=== PATIENT | female | born 1965 | race Caucasian/White ===

== ENCOUNTER 2017-12-10 21:52 | Emergency (ER) | payer SELFPAY ==
[2017-12-10] MEDS ORDERED: LOPRESSOR PO ONE (22:04)
[2017-12-10] MEDS ORDERED: NACL 0.9% 1000 ML 1,000 ML IV ONE (22:04)
--- NOTE | 2017-12-10 22:22 | Emergency Department Report ---
ED Palpitations HPI - General Chief Complaint: Arrhythmia/Palpitations Stated Complaint: PALPITATIONS Time Seen by Provider: 12/10/17 22:03 Source: patient, EMS Mode of arrival: Ambulatory Limitations: No Limitations - History of Present Illness Initial Comments: Michele 2-year-old female who presents via EMS with a chief complaint of tachycardia. She has a history of SVT. While in route I did speak with EMS and we did give 6 mg of Adenocard. Her heart rate was still over 180 after the Adenocard, heart rate came down to about 115. She denies any kind of chest pain or shortness of breath at this time. She is hemodynamically stable at this time. MD Complaint: rapid heart beat -: Sudden Context: occured during rest Arrythmia History: SVT Associated Symptoms: denies other symptoms Treatments Prior to Arrival: adenosine (6 mg) - Related Data Allergies Allergy/AdvReac Type Severity Reaction Status Date / Time tramadol AdvReac Unknown Verified 12/10/17 22:05 ED Review of Systems ROS: Stated complaint: PALPITATIONS Other details as noted in HPI Comment: All other systems reviewed and negative Constitutional: no symptoms reported Eyes: as per HPI ENT: as per HPI Respiratory: no symptoms reported Cardiovascular: as per HPI Endocrine: no symptoms reported, see HPI Gastrointestinal: as per HPI Genitourinary: as per HPI Musculoskeletal: as per HPI Skin: as per HPI Neurological: as per HPI Psychiatric: as per HPI Hematological/Lymphatic: as per HPI ED Physical Exam - General Limitations: No Limitations General appearance: alert, in no apparent distress - Head Head exam: Present: atraumatic, normocephalic - Eye Eye exam: Present: normal appearance, PERRL, EOMI - ENT ENT exam: Present: normal exam, normal orophraynx - Neck Neck exam: Present: normal inspection - Respiratory Respiratory exam: Present: normal lung sounds bilaterally, respiratory distress - Cardiovascular Cardiovascular Exam: Present: regular rate, normal rhythm - GI/Abdominal GI/Abdominal exam: Present: soft, normal bowel sounds - Extremities Exam Extremities exam: Present: normal inspection, full ROM - Back Exam Back exam: Present: normal inspection, full ROM - Neurological Exam Neurological exam: Present: alert, oriented X3 - Psychiatric Psychiatric exam: Present: normal affect - Skin Skin exam: Present: warm, dry ED Course Vital Signs 12/10/17 23:07 Pulse Rate 117 H Blood Pressure 125/90 - Reevaluation(s) Reevaluation #1: 12/10/17 22:25 The patient is alert and oriented 3 without any distress. Her heart rate is 115 on the monitor. There are no ST changes on the EKG. I decided to go ahead and give her metoprolol 25 mg by mouth here in the ER. We will go ahead and get a CBC CMP cardiac enzymes and TSH urine drug screen and a UA. All this is negative my intention is to discharge the patient. She is to follow-up with her primary care doctor as well if she gets discharge. Labs are pending. 12/10/17 23:37 I reviewed the results with the patient. She did take her metoprolol 25 mg by mouth here in the ER. She wanted to sign out AMA. I advised her that was not really a great idea. She still needs to get some fluids and her blood pressure is around 90s over 60s. However she still wants to leave. I advised her to drink plenty of fluids and if she has any problems to return immediately. She expresses understanding. At this time I'll go ahead and discharge the patient accordingly. ED Medical Decision Making - Lab Data Result diagrams: 12/10/17 22:47 12/10/17 22:47 Critical care attestation.: If time is entered above; I have spent that time in minutes in the direct care of this critically ill patient, excluding procedure time. ED Disposition Clinical Impression: SVT (supraventricular tachycardia) Disposition: DC-01 TO HOME OR SELFCARE Is pt being admited?: No Does the pt Need Aspirin: No Condition: Stable Instructions: Supraventricular Tachycardia (ED) Additional Instructions: Rest, fluids, follow-up with her primary care doctor, call 911 or return to the ER if you feel like your having worsening symptoms or new symptoms. Referrals: ALFRED AMARAL MD [Primary Care Provider] - 3-5 Days Forms: AMA Form
--- NOTE | 2017-12-10 22:45 | XRay Report ---
FINAL REPORT EXAM: XR CHEST 1V AP HISTORY: Dysrhythmia TECHNIQUE: upright single view chest PRIORS: None. FINDINGS: Cardiac and mediastinal contours are unremarkable. No focal pulmonary infiltrate is identified. No pleural fluid collection seen. Pulmonary vasculature is unremarkable. IMPRESSION: Negative single-view chest
[2017-12-10 23:06] LABS: Basophils % (Auto) 0.3 % (0.0-1.8); Eosinophils # (Auto) 0.3 K/mm3 (0.0-0.4); Eosinophils % (Auto) 4.3 % (0.0-4.3); Hematocrit 40.3 % (30.3-42.9); Hemoglobin 13.8 gm/dl (10.1-14.3); Lymphocytes # (Auto) 2.7 K/mm3 (1.2-5.4); Lymphocytes % (Auto) 35.8 % (13.4-35.0); Mean Corpuscular HGB Conc 34 % (30-34); Mean Corpuscular Hemoglobin 31 pg (28-32); Mean Corpuscular Volume 90 fl (79-97); Monocytes # (Auto) 0.6 K/mm3 (0.0-0.8); Monocytes % (Auto) 7.7 % (0.0-7.3); Platelet Count 217 K/mm3 (140-440); Red Blood Count 4.46 M/mm3 (3.65-5.03); Red Cell Distribution Width 14.1 % (13.2-15.2)
[2017-12-10 23:20] LABS: Creatine Kinase MB 1.2 ng/mL (0.0-4.0)
[2017-12-10 23:21] LABS: Alanine Aminotransferase 13 units/L (7-56); BUN/Creatinine Ratio 20; Blood Urea Nitrogen 14 mg/dL (7-17); Calcium 8.4 mg/dL (8.4-10.2); Hemolysis Index 5; INR 0.9 (0.87-1.13)
[2017-12-10 23:22] LABS: Partial Thromboplastin Time 28.6 Sec. (24.2-36.6)
[2017-12-10 23:47] VITALS: BP 90/60
== END 2017-12-11 01:32 | disposition home or self-care (01) ==
LOC: ED 21:52
DX: I47.1 Supraventricular tachycardia (principal); Z88.6 Allergy status to analgesic agent
CPT/HCPCS: 36415; 71045; 80053; 82550; 82553; 83735; 84443; 84484; 85025; 85610; 85730; 93005; 93010; 99284; J7030

== ENCOUNTER 2018-04-22 19:36 | Inpatient (IN) | payer SELFPAY ==
[2018-04-22] MEDS ORDERED: ASPIRIN PO ONE (20:14)
[2018-04-22 20:48] LABS: Basophils % (Auto) 0.5 % (0.0-1.8); Eosinophils # (Auto) 0.4 K/mm3 (0.0-0.4); Eosinophils % (Auto) 4.9 % (0.0-4.3); Hematocrit 42.9 % (30.3-42.9); Hemoglobin 14.1 gm/dl (10.1-14.3); Lymphocytes % (Auto) 41.4 % (13.4-35.0); Mean Corpuscular HGB Conc 33 % (30-34); Mean Corpuscular Hemoglobin 30 pg (28-32); Mean Corpuscular Volume 90 fl (79-97); Monocytes # (Auto) 0.5 K/mm3 (0.0-0.8); Monocytes % (Auto) 6.7 % (0.0-7.3); Platelet Count 232 K/mm3 (140-440); Red Blood Count 4.75 M/mm3 (3.65-5.03); Red Cell Distribution Width 14.5 % (13.2-15.2)
[2018-04-22 20:58] LABS: INR 0.94 (0.87-1.13)
[2018-04-22 20:59] LABS: Partial Thromboplastin Time 29.1 Sec. (24.2-36.6)
[2018-04-22 21:01] LABS: BUN/Creatinine Ratio 21; Blood Urea Nitrogen 15 mg/dL (7-17); Calcium 9.3 mg/dL (8.4-10.2); Hemolysis Index 12
[2018-04-22 21:15] LABS: Bacteria,Urine 1+ /HPF (Negative); Bilirubin,Urine NEG (Negative); Blood,Urine LG (Negative); Color,Urine Yellow (Yellow); Mucus,Urine FEW /HPF; Protein,Urine <15 mg/dL mg/dL (Negative); Urobilinogen,Urine < 2.0 mg/dL (<2.0)
[2018-04-22] MEDS ORDERED: NITRO-BID 2% TP ONE (22:49)
[2018-04-22] MEDS ORDERED: NORCO 5/325 PO ONE (22:49)
[2018-04-22] MEDS ORDERED: ZOFRAN IV ONE (22:49)
--- NOTE | 2018-04-22 23:04 | Emergency Department Report ---
HPI - General Chief Complaint: Chest Pain Time Seen by Provider: 04/22/18 22:38 - HPI HPI: Room 4 The patient is a 52-year-old female presented with a chief complaint chest pain. The patient states for the past 3 days she's had a constant sharp and pressure-like pain left chest radiating to the left neck and left upper extremity. The patient states has been shortness of breath with her chest pain as well as diaphoresis and nausea. Patient denies vomiting. The patient gives her pain score of 5/10. The patient states she's never had a stress test or cardiac catheterization Location: Left chest Duration: 3 days Quality: Sharp, pressure Severity: 5/10 Modifying factors: [see above] Context: [see above] Mode of transportation: [not driving] ED Past Medical Hx - Past Medical History Previous Medical History?: Yes Hx Hypertension: Yes Additional medical history: SVT, "frozen" left shoulder, degenerative disk disease, hypothyroid - Surgical History Additional Surgical History: 4 - Family History Family history: no significant - Social History Smoking Status: Former Smoker (none 2 years) Substance Use Type: None (denies illicit drug use) ED Review of Systems ROS: Stated complaint: CHEST PAIN Other details as noted in HPI Constitutional: diaphoresis Respiratory: shortness of breath Cardiovascular: chest pain Gastrointestinal: nausea. denies: vomiting Physical Exam - Physical Exam Vital Signs: Vital Signs 04/22/18 20:11 Temperature 98.1 F Pulse Rate 77 Respiratory 20 Rate Blood Pressure 121/82 O2 Sat by Pulse 97 Oximetry Physical Exam: GENERAL: The patient is well-developed well-nourished female lying on stretcher not appearing to be in acute distress. [] HEENT: Normocephalic. Atraumatic. Extraocular motions are intact. Patient has moist mucous membranes. NECK: Supple. Trachea midline CHEST/LUNGS: Clear to auscultation. There is no respiratory distress noted. HEART/CARDIOVASCULAR: Regular. There is no tachycardia. There is no gallop rub or murmur. ABDOMEN: Abdomen is soft, nontender. Patient has normal bowel sounds. There is no abdominal distention. SKIN: There is no rash. There is no edema. There is no diaphoresis. NEURO: The patient is awake, alert, and oriented. The patient is cooperative. The patient has normal speech MUSCULOSKELETAL: There is no evidence of acute injury. ED Course Vital Signs 04/22/18 20:11 Temperature 98.1 F Pulse Rate 77 Respiratory 20 Rate Blood Pressure 121/82 O2 Sat by Pulse 97 Oximetry ED Medical Decision Making - Lab Data Result diagrams: 04/22/18 20:36 04/22/18 20:36 Laboratory Tests 04/22/18 04/22/18 04/22/18 20:36 20:36 20:36 WBC 7.1 RBC 4.75 Hgb 14.1 Hct 42.9 MCV 90 MCH 30 MCHC 33 RDW 14.5 Plt Count 232 Lymph % (Auto) 41.4 H [place] % (Auto) 6.7 Eos % (Auto) 4.9 H Baso % (Auto) 0.5 Lymph # 3.0 [place] # 0.5 Eos # 0.4 Baso # 0.0 Seg Neutrophils % 46.5 Seg Neutrophils # 3.3 PT 13.0 INR 0.94 APTT 29.1 Sodium 137 Potassium 4.1 Chloride 99.6 Carbon Dioxide 23 Anion Gap 19 BUN 15 Creatinine 0.7 Estimated GFR > 60 BUN/Creatinine Ratio 21 Glucose 87 Calcium 9.3 Troponin T < 0.010 Urine Color Urine Turbidity Urine pH Ur Specific [place] Urine Protein Urine Glucose (UA) Urine Ketones Urine Blood Urine Nitrite Urine Bilirubin Urine Urobilinogen Ur Leukocyte Esterase Urine WBC (Auto) Urine RBC (Auto) U Epithel Cells (Auto) Urine Bacteria (Auto) Urine Mucus 04/22/18 21:01 WBC RBC Hgb Hct MCV MCH MCHC RDW Plt Count Lymph % (Auto) [place] % (Auto) Eos % (Auto) Baso % (Auto) Lymph # [place] # Eos # Baso # Seg Neutrophils % Seg Neutrophils # PT INR APTT Sodium Potassium Chloride Carbon Dioxide Anion Gap BUN Creatinine Estimated GFR BUN/Creatinine Ratio Glucose Calcium Troponin T Urine Color Yellow Urine Turbidity Clear Urine pH 5.0 Ur Specific [place] 1.021 Urine Protein <15 mg/dl Urine Glucose (UA) Neg Urine Ketones Neg Urine Blood Lg Urine Nitrite Neg Urine Bilirubin Neg Urine Urobilinogen < 2.0 Ur Leukocyte Esterase Tr Urine WBC (Auto) 10.0 H Urine RBC (Auto) 14.0 U Epithel Cells (Auto) 2.0 Urine Bacteria (Auto) 1+ Urine Mucus Few - EKG Data -: EKG Interpreted by Ca EKG shows normal: sinus rhythm Rate: normal - EKG Data When compared to previous EKG there are: changes noted Interpretation: nonspecific ST-T wave jose (T-wave inversion in lead 3) - Radiology Data Radiology results: image reviewed (chest x-ray) interpreted by me: Chest x-ray-no focal infiltrates, no pneumothorax - Differential Diagnosis ACS, pericarditis, pneumonia, bronchitis, GERD Critical care attestation.: If time is entered above; I have spent that time in minutes in the direct care of this critically ill patient, excluding procedure time. ED Disposition Clinical Impression: Chest pain Disposition: OP ADMIT IP TO THIS HOSP Is pt being admited?: Yes Does the pt Need Aspirin: Yes Condition: Fair Instructions: Chest Pain (ED) Referrals: PRIMARY CARE,MD [Primary Care Provider] - 3-5 Days Time of Disposition: 23:10 (hospitalist paged (Dr. Sugar Squires))
--- NOTE | 2018-04-22 23:19 | XRay Report ---
FINAL REPORT PROCEDURE: XR CHEST 1V AP TECHNIQUE: Chest radiograph anteroposterior view. CPT 89984 HISTORY: chest pain COMPARISON: No prior studies are available for comparison. FINDINGS: Heart: Normal. Mediastinum/Vessels: Normal. Lungs/Pleural space: Normal. Bony thorax: No acute osseous abnormality. Life support devices: None. IMPRESSION: No acute cardiopulmonary abnormality.
[2018-04-22] MEDS ORDERED: SODIUM CHLORIDE FLUSH SYRINGE 10 ML IV PRN (23:42)
[2018-04-22] MEDS ORDERED: TYLENOL PO PRN (23:42)
[2018-04-22] MEDS ORDERED: ZOFRAN IV PRN (23:42)
--- NOTE | 2018-04-22 23:54 | History and Physical Report ---
History of Present Illness Date of examination: 04/22/18 History of present illness: 52-year-old male with a history of hypertension, hypothyroidism comes to ER for evaluation of chest pain. Pain is in the left chest which she described as heavy, constant pain lasted for several hours, intensity 5/10, radiating to the left arm, , left neck. She cannot identify exacerbating or relieving factor. Admits to nausea, shortness of breath, no diaphoresis or palpitation Review of systems Constitutional: no weight loss, chills Ears, eyes, nose, mouth and throat: no nasal congestion, no nasal discharge, no sinus pressure, no vision change, no red eye. Neck: No neck pain or rigidity. Cardiovascular: no palpitations Respiratory: No cough, shortness of breath Gastrointestinal: no abdominal pain, hematochezia Genitourinary : no dysuria, frequency , no hematuria Musculoskeletal: no joint swelling or muscle ache Integumentary: no rash, no pruritis Neurological: no parathesias, no numbness, no focal weakness Endocrine: no cold or heat intolerance, no polyuria or polydipsia Hematologic/Lymphatic: no easy bruising, no easy bleeding, no gland swelling Allergic/Immunologic: no urticaria, no angioedema. PAST MEDICAL HISTORY: HTN, hypothyroidism PAST SURGICAL HISTORY: c/section X 4 SOCIAL HISTORY: Denies alcohol, tobacco, drugs FAMILY HISTORY: Hypertension Medications and Allergies Allergies Allergy/AdvReac Type Severity Reaction Status Date / Time tramadol AdvReac Unknown Verified 12/10/17 22:05 Active Meds: Active Medications Acetaminophen (Tylenol) 650 mg PO Q4H PRN PRN Reason: Pain MILD(1-3)/Fever >100.5/RUIZ Aspirin (Aspirin) 325 mg PO QDAY ALANIS Enoxaparin Sodium (Lovenox) 30 mg SUB-Q QDAY ALANIS Ondansetron HCl (Zofran) 4 mg IV Q4H PRN PRN Reason: Nausea And Vomiting Oxycodone/Acetaminophen (Percocet 5/325) 1 tab PO Q4H PRN PRN Reason: Pain, Moderate (4-6) Sodium Chloride (Sodium Chloride Flush Syringe 10 Ml) 10 ml IV BID ALANIS Sodium Chloride (Sodium Chloride Flush Syringe 10 Ml) 10 ml IV PRN PRN PRN Reason: LINE FLUSH Exam - Physical Exam Narrative exam: Gen. appearance: Patient lying in bed, no apparent distress HEENT: Normocephalic, atraumatic, pupils equally round and reactive to light, extraocular movement intact, and no sclericterus,. No JVD or thyromegaly or nodule,neck supple, no carotid bruit ,mucous membranes moist, no exudate or erythema Heart: S1, S2, regular rate and rhythm Lungs: Clear, breathing comfortable Abdomen: Positive bowel sounds, nontender, non distended, no organomegaly Extremity: No edema, cyanosis, clubbing Skin: No rash, nodules, warm, dry Neuro: Oriented 3, cranial nerves II-12 intact, speech is fluent, motor and sensory intact - Constitutional Vitals: Temp Pulse Resp BP Pulse Ox 98.1 F 63 16 127/86 97 04/22/18 20:11 04/22/18 23:13 04/22/18 23:13 04/22/18 23:13 04/22/18 20:11 Results - Labs CBC & Chem 7: 04/22/18 20:36 04/22/18 20:36 Labs: Abnormal lab results 04/22/18 04/22/18 Range/Units 20:36 21:01 Lymph % (Auto) 41.4 H (13.4-35.0) % Eos % (Auto) 4.9 H (0.0-4.3) % Urine WBC (Auto) 10.0 H (0.0-6.0) /HPF - Imaging and Cardiology EKG: image reviewed Chest x-ray: image reviewed Assessment and Plan Assessment Chest pain Hypertension hypothyroidism Plan Admit to medicine Check cardiac enzymes, stress test Start aspirin, pain medication, DVT prophalaxis
[2018-04-23] MEDS: PERCOCET 5/325 PO PRN ×3 (00:35→20:00)
[2018-04-23] MEDS ORDERED: PERCOCET 5/325 ONE (00:36)
[2018-04-23 00:48] LABS: Creatine Kinase MB 1.3 ng/mL (0.0-4.0)
[2018-04-23 02:38] LABS: Basophils % (Auto) 0.4 % (0.0-1.8); Eosinophils # (Auto) 0.3 K/mm3 (0.0-0.4); Eosinophils % (Auto) 5.1 % (0.0-4.3); Hemoglobin 13.7 gm/dl (10.1-14.3); Lymphocytes # (Auto) 2.7 K/mm3 (1.2-5.4); Lymphocytes % (Auto) 41.5 % (13.4-35.0); Mean Corpuscular HGB Conc 34 % (30-34); Mean Corpuscular Hemoglobin 30 pg (28-32); Mean Corpuscular Volume 90 fl (79-97); Monocytes # (Auto) 0.5 K/mm3 (0.0-0.8); Monocytes % (Auto) 7.4 % (0.0-7.3); Platelet Count 204 K/mm3 (140-440); Red Blood Count 4.55 M/mm3 (3.65-5.03); Red Cell Distribution Width 14.4 % (13.2-15.2)
[2018-04-23 03:02] LABS: BUN/Creatinine Ratio 24; Blood Urea Nitrogen 17 mg/dL (7-17); Calcium 8.8 mg/dL (8.4-10.2); Hemolysis Index 5
[2018-04-23 07:08] LABS: Creatine Kinase MB 1.4 ng/mL (0.0-4.0)
[2018-04-23] MEDS ORDERED: LOVENOX SUB-Q SCH (10:00)
[2018-04-23] MEDS: ASPIRIN PO SCH (12:30)
[2018-04-23] MEDS: SODIUM CHLORIDE FLUSH SYRINGE 10 ML IV SCH ×2 (12:31→23:41)
[2018-04-23] MEDS: LOVENOX SUB-Q SCH (12:32)
--- NOTE | 2018-04-23 16:11 | Progress Note ---
Assessment and Plan Assessment and plan: 52-year-old female with past medical history significant for hypothyroidism, hypertension presented to the emergency department complaining of left-sided chest pain. Patient is complaining easy fatigability, and dyspnea on exertion Chest pain - Cardiac enzymes are negative, stress test in the morning Patient is complaining dyspnea on exertion - I ordered echo Hypothyroidism - Continue levothyroxine and check TSH Hypertension - Currently blood pressure is low - Old BP medications DVT prophylaxis - On Lovenox Disposition - Continue inpatient care. History Interval history: Patient was seen and evaluated this morning, patient is complaining shortness of breath. Chest pain is getting better. Hospitalist Physical - Physical exam Narrative exam: Not in cardiopulmonary distress. The patient is obese. Vital signs as documented. Head exam is unremarkable. No scleral icterus . Neck is without jugular venous distension, thyromegaly, or carotid bruits. Lungs are clear to auscultation. Cardiac exam reveals regular rate and Rhythm. Abdominal exam reveals normal bowel sounds. Extremities are nonedematous and both femoral and pedal pulses are normal. TOPOGRAPHICAL SURVEYOR: Alert and oriented 3. No focal weakness. - Constitutional Vitals: Temp Pulse Resp BP Pulse Ox 98.6 F 69 20 98/58 96 04/23/18 11:36 04/23/18 11:36 04/23/18 11:36 04/23/18 11:36 04/23/18 11:36 Results - Labs CBC & Chem 7: 04/23/18 02:24 04/23/18 02:24 Labs: Laboratory Last Values WBC 6.5 K/mm3 (4.5-11.0) 04/23/18 02:24 RBC 4.55 M/mm3 (3.65-5.03) 04/23/18 02:24 Hgb 13.7 gm/dl (10.1-14.3) 04/23/18 02:24 Hct 41.0 % (30.3-42.9) 04/23/18 02:24 MCV 90 fl (79-97) 04/23/18 02:24 MCH 30 pg (28-32) 04/23/18 02:24 MCHC 34 % (30-34) 04/23/18 02:24 RDW 14.4 % (13.2-15.2) 04/23/18 02:24 Plt Count 204 K/mm3 (140-440) 04/23/18 02:24 Lymph % (Auto) 41.5 % (13.4-35.0) H 04/23/18 02:24 [place] % (Auto) 7.4 % (0.0-7.3) H 04/23/18 02:24 Eos % (Auto) 5.1 % (0.0-4.3) H 04/23/18 02:24 Baso % (Auto) 0.4 % (0.0-1.8) 04/23/18 02:24 Lymph # 2.7 K/mm3 (1.2-5.4) 04/23/18 02:24 [place] # 0.5 K/mm3 (0.0-0.8) 04/23/18 02:24 Eos # 0.3 K/mm3 (0.0-0.4) 04/23/18 02:24 Baso # 0.0 K/mm3 (0.0-0.1) 04/23/18 02:24 Seg Neutrophils % 45.6 % (40.0-70.0) 04/23/18 02:24 Seg Neutrophils # 2.9 K/mm3 (1.8-7.7) 04/23/18 02:24 PT 13.0 Sec. (12.2-14.9) 04/22/18 20:36 INR 0.94 (0.87-1.13) 04/22/18 20:36 APTT 29.1 Sec. (24.2-36.6) 04/22/18 20:36 Sodium 141 mmol/L (137-145) 04/23/18 02:24 Potassium 3.7 mmol/L (3.6-5.0) 04/23/18 02:24 Chloride 108.3 mmol/L (98-107) H 04/23/18 02:24 Carbon Dioxide 20 mmol/L (22-30) L 04/23/18 02:24 Anion Gap 16 mmol/L 04/23/18 02:24 BUN 17 mg/dL (7-17) 04/23/18 02:24 Creatinine 0.7 mg/dL (0.7-1.2) 04/23/18 02:24 Estimated GFR > 60 ml/min 04/23/18 02:24 BUN/Creatinine Ratio 24 % 04/23/18 02:24 Glucose 93 mg/dL (65-100) 04/23/18 02:24 Calcium 8.8 mg/dL (8.4-10.2) 04/23/18 02:24 Total Creatine Kinase 65 units/L (30-135) 04/23/18 06:04 CK-MB (CK-2) 1.4 ng/mL (0.0-4.0) 04/23/18 06:04 CK-MB (CK-2) Rel Index 2.1 (0-4) 04/23/18 06:04 Troponin T < 0.010 ng/mL (0.00-0.029) 04/23/18 06:04 Urine Color Yellow (Yellow) 04/22/18 21: Urine Turbidity Clear (Clear) 04/22/18 21: Urine pH 5.0 (5.0-7.0) 04/22/18 21:01 Ur Specific [place] 1.021 (1.003-1.030) 04/22/18 21: Urine Protein <15 mg/dl mg/dL (Negative) 04/22/18 21: Urine Glucose (UA) Neg mg/dL (Negative) 04/22/18 21: Urine Ketones Neg mg/dL (Negative) 04/22/18 21: Urine Blood Lg (Negative) 04/22/18 21: Urine Nitrite Neg (Negative) 04/22/18 21: Urine Bilirubin Neg (Negative) 04/22/18 21:01 Urine Urobilinogen < 2.0 mg/dL (<2.0) 04/22/18 21:01 Ur Leukocyte Esterase Tr (Negative) 04/22/18 21:01 Urine WBC (Auto) 10.0 /HPF (0.0-6.0) H 04/22/18 21:01 Urine RBC (Auto) 14.0 /HPF (0.0-6.0) 04/22/18 21: U Epithel Cells (Auto) 2.0 /HPF (0-13.0) 04/22/18 21:01 Urine Bacteria (Auto) 1+ /HPF (Negative) 04/22/18 21: Urine Mucus Few /HPF 04/22/18 21:01
[2018-04-23 20:01] LABS: BUN/Creatinine Ratio 19; Blood Urea Nitrogen 17 mg/dL (7-17); Calcium 8.6 mg/dL (8.4-10.2); Hemolysis Index 6
[2018-04-24] MEDS ORDERED: SYNTHROID PO SCH (06:00)
[2018-04-24] MEDS ORDERED: LEXISCAN IV ONE (08:27)
[2018-04-24] MEDS: SODIUM CHLORIDE FLUSH SYRINGE 10 ML IV SCH (10:52)
[2018-04-24] MEDS: LOVENOX SUB-Q SCH (10:52)
[2018-04-24] MEDS: ASPIRIN PO SCH (10:52)
--- NOTE | 2018-04-24 10:57 | Treadmill Report ---
STRESS TEST The patient is a 52-year-old. Resting myocardial perfusion images revealed homogeneous radioisotope activity. On post-Lexiscan similar radioisotope activity noted. Ejection fraction was noted to be 85%. This may be due to the fact the heart size was small. There is no evidence of transient ischemic dilatation. IMPRESSION: This test is negative for ischemia. JOB# [id number] SILVIA/ALBIN
[2018-04-24 12:11] VITALS: BP 120/77
--- NOTE | 2018-04-24 13:48 | Discharge Summary ---
Providers - Providers Date of Admission: 04/22/18 23:43 Attending physician: DAWIT AMADO MD Primary care physician: PAPER BAG MAKER Hospitalization Condition: Fair Hospital course: 52-year-old female with past medical history significant for hypothyroidism, hypertension presented to the emergency department complaining of left-sided chest pain. Patient is complaining easy fatigability, and dyspnea on exertion Chest pain - Cardiac enzymes are negative, stress test in the morning Patient is complaining dyspnea on exertion - I ordered echo Hypothyroidism - Continue levothyroxine and check TSH Hypertension - Currently blood pressure is low - Old BP medications DVT prophylaxis - On Lovenox Disposition - Continue inpatient care. Exam - Constitutional Vitals: Temp Pulse Resp BP Pulse Ox 98.4 F 84 18 120/77 94 04/24/18 03:35 04/24/18 09:13 04/24/18 10:00 04/24/18 09:13 04/24/18 03:35 Plan Activity: advance as tolerated, fall precautions Diet: low cholesterol Special Instructions: record daily weights, record daily BP diary Follow up with: PRIMARY CAREMD [Primary Care Provider] - 3-5 Days Prescriptions: Levothyroxine [Synthroid] 50 mcg PO DAILY@0600 #30 tablet
[2018-04-24] MEDS: PERCOCET 5/325 PO PRN (16:50)
== END 2018-04-24 18:26 | disposition home or self-care (01) | DRG 313 ==
LOC: ED 19:36 → 4A 23:43
PROVIDERS: ADMIT Internal Medicine; ATTEND Internal Medicine
DX: R07.9 Chest pain, unspecified (principal); E03.9 Hypothyroidism, unspecified; I10 Essential (primary) hypertension; Z82.49 Family history of ischemic heart disease and other diseases of the circulatory system
CPT/HCPCS: 36415; 71045; 78452; 80048; 81001; 82550; 82553; 84439; 84443; 84484; 85025; 85610; 85730; 93005; 93010; 93017; 93306; 94760; 96374; 99285; A9502; J1650; J2405; J2785

== ENCOUNTER 2018-05-25 18:31 | Emergency (ER) | payer SELFPAY ==
[2018-05-25] MEDS ORDERED: MOTRIN PO ONE (19:51)
--- NOTE | 2018-05-25 19:52 | Emergency Department Report ---
ED Palpitations HPI - General Chief Complaint: Chest Pain Stated Complaint: CHEST PAIN Time Seen by Provider: 05/25/18 19:35 Source: patient, EMS, RN notes reviewed, old records reviewed Mode of arrival: Stretcher Limitations: No Limitations - History of Present Illness Initial Comments: This is a 52-year-old female who is unknown to this provider previously. Patient was admitted to this hospital last month, and had a nuclear stress test performed which was negative for ischemia. Also had multiple negative troponins. Reports a history of multiple episodes of SVT since September of last year. She had an episode in September, October, November and then today. She reports being seen by the cardiology team at the [facility], and was given metoprolol for her paroxysmal SVT. She reports being in her usual state of health today, being outside, and then began to feel a "pulling" sensation in her abdomen down her lower extremities. This wasn't accompanied by heart racing, palpitations and fluttering, and she reports that she felt like her SVT was activated. She denies dietary indiscretions, stimulant ingestions, and caffeinated substances. She is not sure if she tried vagal maneuvers. She denies DVT and pulmonary embolus risk factors. She is now back to her baseline. She admits to central sharp chest wall pain which is nonexertional, nonradiating, and chronic every morning, 4 months. This pain does not rates to the back, arms or neck, and is not associated with vomiting or diaphoresis. Her symptoms were resolved with adenosine. She has no complaints at this time. MD Complaint: rapid heart beat, "heart racing", "skipped beats", palpitations -: Sudden Context: occured during exertion Arrythmia History: SVT Associated Symptoms: chest pain, anxiety, muscle cramps. denies: shortness of breath, syncope, near-syncope, nausea/vomiting, diaphoresis, cough, parasthesias , feeling of impending doom Treatments Prior to Arrival: adenosine - Related Data Previous Rx's Medication Instructions Recorded Last Taken Type Levothyroxine [Synthroid] 50 mcg PO DAILY@0600 #30 tablet 04/24/18 05/25/18 Rx Allergies Allergy/AdvReac Type Severity Reaction Status Date / Time tramadol AdvReac Unknown Verified 12/10/17 22:05 ED Review of Systems ROS: Stated complaint: CHEST PAIN Other details as noted in HPI Constitutional: malaise. denies: fever Eyes: denies: vision change ENT: denies: epistaxis Respiratory: denies: cough Cardiovascular: palpitations Gastrointestinal: denies: vomiting Genitourinary: denies: dysuria Musculoskeletal: denies: back pain Neurological: weakness Psychiatric: anxiety ED Past Medical Hx - Past Medical History Previous Medical History?: Yes Hx Hypertension: Yes Additional medical history: SVT, "frozen" left shoulder, degenerative disk disease, hypothyroid - Surgical History Past Surgical History?: Yes Additional Surgical History: 4 - Social History Smoking Status: Former Smoker Substance Use Type: Prescribed - Medications Home Medications: Home Medications Medication Instructions Recorded Confirmed Last Taken Type Levothyroxine [Synthroid] 50 mcg PO DAILY@0600 #30 tablet 04/24/18 05/25/18 Rx ED Physical Exam - General Limitations: No Limitations General appearance: alert, in no apparent distress - Head Head exam: Present: atraumatic, normocephalic - Eye Eye exam: Present: normal appearance, EOMI. Absent: nystagmus - ENT ENT exam: Present: normal exam, normal orophraynx, mucous membranes moist, normal external ear exam - Neck Neck exam: Present: normal inspection, full ROM - Respiratory Respiratory exam: Present: normal lung sounds bilaterally, chest wall tenderness. Absent: respiratory distress - Cardiovascular Cardiovascular Exam: Present: regular rate, normal rhythm, normal heart sounds. Absent: systolic murmur, diastolic murmur, rubs, gallop - GI/Abdominal GI/Abdominal exam: Present: soft, normal bowel sounds. Absent: distended, tenderness, guarding, rebound, rigid, pulsatile mass - Extremities Exam Extremities exam: Present: normal inspection, full ROM, normal capillary refill , other (2+ pulses noted in the bilateral upper, lower extremities. Compartments soft. No long bony tenderness. The pelvis is stable.). Absent: pedal edema, joint swelling, calf tenderness (there is no palpable cord. There is a negative Homans sign.) - Back Exam Back exam: Present: normal inspection, full ROM. Absent: tenderness, CVA tenderness (R), paraspinal tenderness, vertebral tenderness - Neurological Exam Neurological exam: Present: alert, oriented X3, CN II-XII intact, normal gait. Absent: motor sensory deficit - Psychiatric Psychiatric exam: Present: anxious - Skin Skin exam: Present: warm, dry, intact, normal color. Absent: rash ED Course Vital Signs 05/25/18 05/25/18 19:21 20:02 Temperature 97.7 F Pulse Rate 79 Respiratory 16 16 Rate Blood Pressure 102/68 O2 Sat by Pulse 98 Oximetry - Reevaluation(s) Reevaluation #1: 05/25/18 20:51 As expected, laboratory studies, EKG, x-ray of the chest unremarkable, patient will be discharged. ED Medical Decision Making - Lab Data Result diagrams: 05/25/18 20:00 05/25/18 20:00 Vital Signs 05/25/18 05/25/18 19:21 20:02 Temperature 97.7 F Pulse Rate 79 Respiratory 16 16 Rate Blood Pressure 102/68 O2 Sat by Pulse 98 Oximetry - EKG Data -: EKG Interpreted by Me EKG shows normal: sinus rhythm, intervals, QRS complexes, ST-T waves - EKG Data When compared to previous EKG there are: no significant change 05/25/18 20:03 Sinus, 89 bpm, normal axis, not a STEMI, unremarkable EKG, appears to be unchanged from prior. - Radiology Data Radiology results: image reviewed interpreted by me: X-ray the chest, interpreted by me, no acute disease Vital Signs 05/25/18 05/25/18 19:21 20:02 Temperature 97.7 F Pulse Rate 79 Respiratory 16 16 Rate Blood Pressure 102/68 O2 Sat by Pulse 98 Oximetry Lab Results 05/25/18 05/25/18 Range/Units 20:00 20:00 WBC 7.3 (4.5-11.0) K/mm3 RBC 4.37 (3.65-5.03) M/mm3 Hgb 13.2 (10.1-14.3) gm/dl Hct 39.8 (30.3-42.9) % MCV 91 (79-97) fl MCH 30 (28-32) pg MCHC 33 (30-34) % RDW 14.7 (13.2-15.2) % Plt Count 248 (140-440) K/mm3 Sodium 141 (137-145) mmol/L Potassium 4.5 (3.6-5.0) mmol/L Chloride 105.0 (98-107) mmol/L Carbon Dioxide 25 (22-30) mmol/L Anion Gap 16 mmol/L BUN 13 (7-17) mg/dL Creatinine 0.7 (0.7-1.2) mg/dL Estimated GFR > 60 ml/min BUN/Creatinine Ratio 19 % Glucose 90 (65-100) mg/dL Calcium 9.1 (8.4-10.2) mg/dL Magnesium 2.30 (1.7-2.3) mg/dL - Medical Decision Making Differential diagnosis, including without limited to: Costochondritis, SVT, now resolved Assessment and plan: 52-year-old female who is already taking metoprolol, with presumed fourth episode of paroxysmal SVT, now resolved with adenosine. Prehospital administration in no distress. She is afebrile with reassuring vital signs, has a normal pulmonary examination, and has reproducible chest wall tenderness. She had a cardiac risk stratification within the past 6 weeks. Clinical history is low risk by well's criteria, and she is not currently tachycardic or hypoxic, therefore do not suspect pulmonary embolus. I will not send a troponin as it may be falsely elevated secondary to her SVT, and they make the clinical picture ambiguous. Patient had thyroid function tests evaluated during her last visit. We will check basic laboratory studies, x-ray of the chest and reevaluate. Critical care attestation.: If time is entered above; I have spent that time in minutes in the direct care of this critically ill patient, excluding procedure time. ED Disposition Clinical Impression: History of PSVT (paroxysmal supraventricular tachycardia) Disposition: TO HOME OR SELFCARE Is pt being admited?: No Does the pt Need Aspirin: No Condition: Good Instructions: Supraventricular Tachycardia (ED), Valsalva Maneuver (ED) Additional Instructions: Avoid consumption of stimulants and caffeinated beverages. Make certain to get 7 or 8 hours of good quality uninterrupted sleep per night. Follow up with either of illicit cardiology groups within the next 2-3 weeks. Return to the ER right away with new pain, worsened pain, migration of pain, fevers, chills, lethargy, irritability, projectile vomiting, change in mental status, confused, inability to tolerate feeds. Referrals: PRIMARY CARE, [Primary Care Provider] - 3-5 Days [facility] [Provider Group] - 3-5 Days [facility] [Provider Group] - 3-5 Days
[2018-05-25 20:16] LABS: Hematocrit 39.8 % (30.3-42.9); Hemoglobin 13.2 gm/dl (10.1-14.3); Mean Corpuscular HGB Conc 33 % (30-34); Mean Corpuscular Hemoglobin 30 pg (28-32); Mean Corpuscular Volume 91 fl (79-97); Platelet Count 248 K/mm3 (140-440); Red Blood Count 4.37 M/mm3 (3.65-5.03); Red Cell Distribution Width 14.7 % (13.2-15.2)
[2018-05-25 20:35] LABS: BUN/Creatinine Ratio 19; Blood Urea Nitrogen 13 mg/dL (7-17); Calcium 9.1 mg/dL (8.4-10.2); Hemolysis Index 4
[2018-05-25 21:17] VITALS: BP 107/73
--- NOTE | 2018-05-25 22:15 | XRay Report ---
FINAL REPORT PROCEDURE: XR CHEST ROUTINE 2V TECHNIQUE: PA and lateral chest radiographs were obtained. CPT 35234 HISTORY: chest wall pain svt COMPARISON: No prior studies are available for comparison. FINDINGS: Heart: Normal. Mediastinum/Vessels: Normal. Lungs/Pleural space: Normal. Bony thorax: No acute osseous abnormality. Other: IMPRESSION: Normal examination.
== END 2018-05-25 21:18 | disposition home or self-care (01) ==
LOC: ED 18:31
DX: R07.9 Chest pain, unspecified (principal); I10 Essential (primary) hypertension; E03.9 Hypothyroidism, unspecified; Z87.891 Personal history of nicotine dependence; Z86.79 Personal history of other diseases of the circulatory system; Z88.6 Allergy status to analgesic agent
CPT/HCPCS: 36415; 71046; 80048; 83735; 85027; 93005; 93010; 99284

== ENCOUNTER 2018-06-30 16:06 | Emergency (ER) | payer SELFPAY ==
[2018-06-30 16:17] VITALS: BP 140/87
[2018-06-30 16:53] LABS: Basophils # (Auto) 0.1 K/mm3 (0.0-0.1); Basophils % (Auto) 0.8 % (0.0-1.8); Eosinophils # (Auto) 0.3 K/mm3 (0.0-0.4); Hemoglobin 13.6 gm/dl (10.1-14.3); Lymphocytes % (Auto) 38.3 % (13.4-35.0); Mean Corpuscular HGB Conc 34 % (30-34); Mean Corpuscular Hemoglobin 31 pg (28-32); Mean Corpuscular Volume 90 fl (79-97); Monocytes # (Auto) 0.4 K/mm3 (0.0-0.8); Monocytes % (Auto) 5.8 % (0.0-7.3); Platelet Count 260 K/mm3 (140-440); Red Blood Count 4.43 M/mm3 (3.65-5.03); Red Cell Distribution Width 14.4 % (13.2-15.2)
[2018-06-30 17:10] LABS: Alanine Aminotransferase 12 units/L (7-56); Albumin 4.1 g/dL (3.9-5); BUN/Creatinine Ratio 20; Blood Urea Nitrogen 14 mg/dL (7-17); Calcium 9.3 mg/dL (8.4-10.2); Hemolysis Index 1
== END 2018-06-30 21:00 | disposition left against medical advice (07) ==
LOC: ED 16:06
DX: R07.89 Other chest pain (principal); Z53.21 Procedure and treatment not carried out due to patient leaving prior to being seen by health care provider
CPT/HCPCS: 36415; 80053; 85025; 93005; 93010

== ENCOUNTER 2019-04-16 09:49 | Outpatient (CLI) | payer MEDICAID ==
--- NOTE | 2019-04-24 13:39 | Magnetic Resonance Report ---
MRI LUMBAR SPINE WITHOUT CONTRAST HISTORY: Lumbar radiculopathy. TECHNIQUE: axial T1, T2. sagittal T1,T2, STIR. COMPARISON: none. FINDINGS: The conus terminates at L1-2. No signal abnormality or mass. The cauda equina is within normal limits. No central canal stenosis. 2-3 mm anterolisthesis of L5 with respect to the sacrum is identified. This appears to be secondary to degenerative facet arthropathy. The remaining lumbar vertebra are normal in alignment. There is diffuse disc desiccation. Mild disc space narrowing is noted at L2-3 and L5-S1. There is moderate diffuse facet arthropathy with hypertrophic changes. L1-2: No significant abnormality. L2-3: A mild circumferential bulging disc and mild facet arthropathy are identified. Mild hypertrophy of ligamentum flavum. No central canal stenosis or neural foraminal narrowing. L3-4: No significant abnormality with the disc. Moderate facet arthropathy and hypertrophy the ligamentum flavum. No central canal stenosis or significant neuroforaminal narrowing. L4-5: Focal right paracentral to right lateral annular tear and small disc protrusion are identified. Mild facet arthropathy and hypertrophy ligamentum flavum. Mild right neural foraminal narrowing is estimated at 25-50 %. L5-S1: No significant abnormality with the disc. Moderate facet arthropathy and mild hypertrophy of the ligamentum flavum. No central canal stenosis or significant neuroforaminal narrowing. IMPRESSION: Lumbar spondylosis as described above. Right paracentral to right lateral disc protrusion at L4-5 with mild right neural foraminal narrowing. No evidence for fracture, central canal stenosis or high-grade neural foraminal narrowing.
== END 2019-04-16 09:50 | disposition home or self-care (01) ==
LOC: MRI 09:49
PROVIDERS: ATTEND Internal Medicine
DX: M47.816 Spondylosis without myelopathy or radiculopathy, lumbar region (principal); M51.26 Other intervertebral disc displacement, lumbar region; M48.061 Spinal stenosis, lumbar region without neurogenic claudication; I10 Essential (primary) hypertension; E03.9 Hypothyroidism, unspecified
CPT/HCPCS: 72148

== ENCOUNTER 2019-05-20 11:00 | Outpatient (CLI) | payer MEDICAID | END 2019-05-20 11:01 | disposition home or self-care (01) | LOC: SLR 11:00 | PROVIDERS: ATTEND Internal Medicine | DX: G47.33 Obstructive sleep apnea (adult) (pediatric) (principal); R40.0 Somnolence; R06.83 Snoring; I10 Essential (primary) hypertension; E03.9 Hypothyroidism, unspecified | CPT/HCPCS: 95810 ==

== ENCOUNTER 2019-05-26 11:00 | Outpatient (CLI) | payer MEDICAID | END 2019-05-26 11:01 | disposition home or self-care (01) | LOC: SLR 11:00 | PROVIDERS: ATTEND Otolaryngology | DX: G47.33 Obstructive sleep apnea (adult) (pediatric) (principal); R40.0 Somnolence; R06.83 Snoring; E66.9 Obesity, unspecified | CPT/HCPCS: 95811 ==

== ENCOUNTER 2019-06-30 13:37 | Emergency (ER) | payer MEDICAID ==
[2019-06-30 14:34] VITALS: BP 150/99
--- NOTE | 2019-06-30 14:38 | Event Note ---
ED Screening Note Date of service: 06/30/19 Time: 14:35 ED Screening Note: 53 y/o female comes in for 2 day history of dyuria with urinary urgency nausea and light headedness. No fevers or chill. Having lower abd pain. Went through menopause This initial assessment/diagnostic orders/clinical plan/treatment(s) is/are subject to change based on patients health status, clinical progression and re- assessment by fellow clinical providers in the ED. Further treatment and workup at subsequent clinical providers discretion. Patient/guardian urged not to elope from the ED as their condition may be serious if not clinically assessed and managed. Initial orders include:
[2019-06-30] MEDS ORDERED: PYRIDIUM PO ONE (15:29)
[2019-06-30] MEDS ORDERED: BACTRIM DS PO ONE (15:29)
--- NOTE | 2019-06-30 15:34 | Emergency Department Report ---
ED Female HPI - General Chief complaint: Urogenital-Female Stated complaint: UTI Time Seen by Provider: 06/30/19 14:34 Source: patient Mode of arrival: Ambulatory Limitations: No Limitations - History of Present Illness Initial comments: Mrs. Stein is a very pleasant 53-year-old female with history of cardiac disease who presents with UTI symptoms. She has dysuria hematuria. She now has nausea. She has recurrent UTIs every 6 months. She is followed by PCP Dr. Woods. Denies back pain. She normally uses cephalexin for UTI. MD Complaint: dysuria -: Gradual, days(s) (2) Severity: severe Consistency: constant Worsens with: urination Associated Symptoms: dysuria, hematuria - Related Data Previous Rx's Medication Instructions Recorded Last Taken Type Levothyroxine [Synthroid] 50 mcg PO DAILY@0600 #30 tablet 04/24/18 05/25/18 Rx Phenazopyridine [Pyridium] 200 mg PO TID 2 Days #6 tab 06/30/19 Unknown Rx Sulfamethoxazole/Trimethoprim 1 each PO BID 5 Days #10 tablet 06/30/19 Unknown Rx [Bactrim DS TAB] Allergies Allergy/AdvReac Type Severity Reaction Status Date / Time tramadol AdvReac Unknown Verified 12/10/17 22:05 ED Review of Systems ROS: Stated complaint: UTI Other details as noted in HPI Constitutional: malaise. denies: fever Respiratory: denies: cough, shortness of breath Gastrointestinal: denies: abdominal pain, nausea, vomiting Genitourinary: urgency, dysuria, frequency, hematuria Musculoskeletal: denies: back pain Neurological: denies: headache ED Past Medical Hx - Past Medical History Previous Medical History?: Yes Hx Hypertension: Yes Hx Psychiatric Treatment: Yes (depression bi polar) Additional medical history: SVT, "frozen" left shoulder, degenerative disk disease, hypothyroid Panic Attacks - Surgical History Past Surgical History?: Yes Additional Surgical History: 4 - Social History Smoking Status: Former Smoker Substance Use Type: None - Medications Home Medications: Home Medications Medication Instructions Recorded Confirmed Last Taken Type Levothyroxine [Synthroid] 50 mcg PO DAILY@0600 #30 tablet 04/24/18 05/25/18 05/25/18 Rx Phenazopyridine [Pyridium] 200 mg PO TID 2 Days #6 tab 06/30/19 Unknown Rx Sulfamethoxazole/Trimethoprim 1 each PO BID 5 Days #10 tablet 06/30/19 Unknown Rx [Bactrim DS TAB] ED Physical Exam - General Limitations: No Limitations General appearance: alert, in no apparent distress - Head Head exam: Present: atraumatic, normocephalic - Eye Eye exam: Present: normal appearance - ENT ENT exam: Present: mucous membranes moist - Neck Neck exam: Present: normal inspection - Respiratory Respiratory exam: Present: normal lung sounds bilaterally. Absent: respiratory distress, wheezes, rales, rhonchi - Cardiovascular Cardiovascular Exam: Present: regular rate, normal rhythm, normal heart sounds. Absent: systolic murmur, diastolic murmur, rubs, gallop - GI/Abdominal GI/Abdominal exam: Present: soft, normal bowel sounds. Absent: distended, tenderness, guarding - Neurological Exam Neurological exam: Present: alert, oriented X3 - Psychiatric Psychiatric exam: Present: normal affect, normal mood - Skin Skin exam: Present: warm, dry, intact, normal color. Absent: rash ED Course Vital Signs 06/30/19 14:32 Temperature 97.7 F Pulse Rate 105 H Respiratory 18 Rate Blood Pressure 150/99 O2 Sat by Pulse 96 Oximetry ED Medical Decision Making - Medical Decision Making Diagnoses UTI prescription Pyridium and Bactrim. Critical care attestation.: If time is entered above; I have spent that time in minutes in the direct care of this critically ill patient, excluding procedure time. ED Disposition Clinical Impression: Urinary tract infection Disposition: DC-01 TO HOME OR SELFCARE Is pt being admited?: No Does the pt Need Aspirin: No Condition: Stable Instructions: Urinary Tract Infection in Women (ED) Prescriptions: Sulfamethoxazole/Trimethoprim [Bactrim DS TAB] 1 each PO BID 5 Days #10 tablet Phenazopyridine [Pyridium] 200 mg PO TID 2 Days #6 tab Referrals: DAMI WOODS MD [Referring] - as needed
[2019-06-30 16:38] LABS: Bacteria,Urine 1+ /HPF (Negative); Bilirubin,Urine NEG (Negative); Blood,Urine LG (Negative); Color,Urine Yellow (Yellow); Mucus,Urine 1+ /HPF; Urobilinogen,Urine < 2.0 mg/dL (<2.0)
== END 2019-06-30 15:40 | disposition home or self-care (01) ==
LOC: ED 13:37
DX: N39.0 Urinary tract infection, site not specified (principal); I10 Essential (primary) hypertension; F31.9 Bipolar disorder, unspecified; E03.9 Hypothyroidism, unspecified; F41.0 Panic disorder [episodic paroxysmal anxiety]; Z88.5 Allergy status to narcotic agent; Z87.891 Personal history of nicotine dependence
CPT/HCPCS: 81001; 87086; 99283

== ENCOUNTER 2019-07-03 13:41 | Inpatient (IN) | payer MEDICAID ==
[2019-07-03] MEDS ORDERED: BABY ASPIRIN PO ONE (14:13)
--- NOTE | 2019-07-03 14:18 | Emergency Department Report ---
ED Palpitations HPI - General Chief Complaint: Arrhythmia/Palpitations Stated Complaint: CHEST PAIN Time Seen by Provider: 07/03/19 14:08 Source: patient, EMS Mode of arrival: Stretcher Limitations: No Limitations - History of Present Illness Initial Comments: Patient is 53 years old female with history of hypothyroidism and SVT. Patient brought to the emergency room for evaluation after one episode of SVT. Patient stated that her symptoms started this afternoon with palpitation, blurry vision and dizziness. Patient found by EMS to be an SVT patient given adenosine 6 mg which she converted the patient to a sinus tachycardia with a heart rate of 104. Patient also complaining of slight chest pain to the left side, pressure in nature with no radiation. Patient denied any shortness of breath, fever or chills. MD Complaint: rapid heart beat, "heart racing", palpitations -: Sudden, This afternoon Context: occured during rest Arrythmia History: SVT Associated Symptoms: chest pain Treatments Prior to Arrival: adenosine - Related Data Previous Rx's Medication Instructions Recorded Last Taken Type Levothyroxine [Synthroid] 50 mcg PO DAILY@0600 #30 tablet 04/24/18 05/25/18 Rx Phenazopyridine [Pyridium] 200 mg PO TID 2 Days #6 tab 06/30/19 Unknown Rx Sulfamethoxazole/Trimethoprim 1 each PO BID 5 Days #10 tablet 06/30/19 Unknown Rx [Bactrim DS TAB] Allergies Allergy/AdvReac Type Severity Reaction Status Date / Time tramadol AdvReac Unknown Verified 12/10/17 22:05 ED Review of Systems ROS: Stated complaint: CHEST PAIN Other details as noted in HPI Comment: All other systems reviewed and negative Constitutional: denies: chills, fever Respiratory: denies: cough, orthopnea, shortness of breath, SOB with exertion, SOB at rest, wheezing Cardiovascular: chest pain, palpitations Gastrointestinal: denies: abdominal pain, nausea, vomiting, diarrhea, constipation, hematemesis, melena, hematochezia Musculoskeletal: denies: back pain Neurological: denies: headache, weakness, numbness, paresthesias, confusion, abnormal gait ED Past Medical Hx - Past Medical History Previous Medical History?: Yes Hx Hypertension: Yes Hx Psychiatric Treatment: Yes (depression bi polar) Additional medical history: SVT, "frozen" left shoulder, degenerative disk disease, hypothyroid Panic Attacks - Surgical History Past Surgical History?: Yes Additional Surgical History: 4 - Social History Smoking Status: Never Smoker Substance Use Type: None - Medications Home Medications: Home Medications Medication Instructions Recorded Confirmed Last Taken Type Levothyroxine [Synthroid] 50 mcg PO DAILY@0600 #30 tablet 04/24/18 05/25/18 05/25/18 Rx Phenazopyridine [Pyridium] 200 mg PO TID 2 Days #6 tab 06/30/19 Unknown Rx Sulfamethoxazole/Trimethoprim 1 each PO BID 5 Days #10 tablet 06/30/19 Unknown Rx [Bactrim DS TAB] ED Physical Exam - General Limitations: No Limitations General appearance: alert, in no apparent distress - Head Head exam: Present: atraumatic, normocephalic, normal inspection - Eye Eye exam: Present: normal appearance, PERRL - ENT ENT exam: Present: normal exam, normal orophraynx, mucous membranes moist - Neck Neck exam: Present: normal inspection, full ROM. Absent: tenderness, meningismus, lymphadenopathy, thyromegaly - Respiratory Respiratory exam: Present: normal lung sounds bilaterally - Cardiovascular Cardiovascular Exam: Present: regular rate, normal rhythm, normal heart sounds - GI/Abdominal GI/Abdominal exam: Present: soft, normal bowel sounds. Absent: distended, tenderness, guarding, rebound, rigid, organomegaly, mass, bruit, pulsatile mass, hernia - Extremities Exam Extremities exam: Present: normal inspection, full ROM, normal capillary refill. Absent: pedal edema, calf tenderness - Back Exam Back exam: Present: normal inspection, full ROM. Absent: CVA tenderness (R), CVA tenderness (L) - Neurological Exam Neurological exam: Present: alert, oriented X3, CN II-XII intact, normal gait, reflexes normal - Psychiatric Psychiatric exam: Present: normal mood - Skin Skin exam: Present: warm, intact, normal color ED Course Vital Signs 07/03/19 07/03/19 13:54 14:50 Temperature 98.2 F Pulse Rate 113 H 102 H Respiratory 14 18 Rate Blood Pressure 122/89 Blood Pressure 124/74 [Right] O2 Sat by Pulse 97 100 Oximetry ED Medical Decision Making - Lab Data Result diagrams: 07/03/19 14:34 07/03/19 14:34 - EKG Data -: EKG Interpreted by Me EKG shows normal: sinus rhythm Rate: tachycardia - EKG Data Interpretation: no acute changes - Radiology Data Radiology results: report reviewed Chest x-ray is unremarkable. - Medical Decision Making Patient is 53 years old female with history of hypothyroidism and SVT. Patient brought to the emergency room for evaluation after one episode of SVT. Patient stated that her symptoms started this afternoon with palpitation, blurry vision and dizziness. Patient found by EMS to be an SVT patient given adenosine 6 mg which she converted the patient to a sinus tachycardia with a heart rate of 104. Patient also complaining of slight chest pain to the left side, pressure in nature with no radiation. Patient denied any shortness of breath, fever or chills. Patient stated that she feel much better after the adenosine but she is uncomfortable going home. She stated that the symptoms has been occurring more often and she would like to see a [employer]en [employer] utility worker. I discussed the patient with Ofe Foss, DIRECT SUPPORT STAFF with Dr. Landon. I discussed the patient with , he has agreed to admit the patient to medical service. Critical care attestation.: If time is entered above; I have spent that time in minutes in the direct care of this critically ill patient, excluding procedure time. ED Disposition Clinical Impression: Chest pain, SVT (supraventricular tachycardia) Disposition: 09 OP ADMIT IP TO THIS HOSP Is pt being admited?: Yes Condition: Stable Instructions: Chest Pain (ED)
[2019-07-03 14:46] LABS: Basophils % (Auto) 0.7 % (0.0-1.8); Eosinophils # (Auto) 0.3 K/mm3 (0.0-0.4); Eosinophils % (Auto) 4.4 % (0.0-4.3); Hematocrit 45.3 % (30.3-42.9); Hemoglobin 15.4 gm/dl (10.1-14.3); Lymphocytes # (Auto) 2.4 K/mm3 (1.2-5.4); Lymphocytes % (Auto) 41.4 % (13.4-35.0); Mean Corpuscular HGB Conc 34 % (30-34); Mean Corpuscular Volume 92 fl (79-97); Monocytes # (Auto) 0.5 K/mm3 (0.0-0.8); Monocytes % (Auto) 8.6 % (0.0-7.3); Platelet Count 247 K/mm3 (140-440); Red Blood Count 4.95 M/mm3 (3.65-5.03)
[2019-07-03 14:56] LABS: INR 1.02 (0.87-1.13); Partial Thromboplastin Time 27.3 Sec. (24.2-36.6)
[2019-07-03 15:09] LABS: BUN/Creatinine Ratio 13; Blood Urea Nitrogen 9 mg/dL (7-17); Calcium 8.7 mg/dL (8.4-10.2); Hemolysis Index 8
--- NOTE | 2019-07-03 15:10 | XRay Report ---
CHEST 1 VIEW INDICATION: Dysrhythmia. Chest pain and shortness of breath for 2 days. COMPARISON: None FINDINGS: Support devices: None. Heart: Within normal limits. Lungs/Pleura: No acute air space or interstitial disease. Additional findings: None. IMPRESSION: No acute findings. Signer Name: Irwin Mukherjee Jr, MD Signed: 07/03/2019 3:06 PM Workstation Name: [id number]
[2019-07-03 15:20] LABS: Free T4 (Free Thyroxine) 0.85 ng/dL (0.76-1.46)
--- NOTE | 2019-07-03 15:48 | Consultation ---
History of Present Illness Consult date: 07/03/19 Requesting physician: CHYNA MICHELLE Consult reason: other (svt) History of present illness: The patient is 53 year old female with history of hypothyroidism and SVT. She is previously unknown to our practice and does not regularly see a hardwood floor finisher. She presented to ED via EMS for evaluation after one episode of SVT. Patient states that last night when she was getting ready to go to sleep she noted the onset of dizziness and palpitations and blurred vision. Her symptoms persisted throughout the night and became worse this morning and she "knew she was in SVT" so she called EMS. She was reportedly found to be in SVT upon EMS arrival and was given adenosine 6 mg which converted the patient to NSR. Unfortunately, no EMS strips are available for review. Admission ECG shows NSR with no acute changes. Pt denies any excessive caffeine intake or illicit drug use, she does not drink alcohol. She did try vagal maneuvers this AM and had a bowel movement with no relief of her symptoms. Pt reports that she has required adenosine in the past to convert her to NSR. On evaluation, pt denies any current complaints and she remains in NSR. Pt is noted to have UTI. Of note, pt was evaluated in [facility] in 05/2018 for SVT. At that time, pt reported a history of multiple episodes of SVT since September 2017. She reported being seen by the cardiology team at the [facility], and was given metoprolol for her paroxysmal SVT. She reports that she still takes lopressor which is refilled by her PCP. She has not regularly seen a hardwood floor finisher in the past due to lack of insurance but states that she now has insurance and would like cardiology f/u at discharge. Echo done 04/2018 showed EF 50-55%, no significant abnormalities. Lexiscan MPI stress test done 04/2018 was negative. Past History Past Medical History: hypothyroidism, other (svt) Medications and Allergies Allergies Allergy/AdvReac Type Severity Reaction Status Date / Time tramadol AdvReac Unknown Verified 12/10/17 22:05 Home Medications Medication Instructions Recorded Confirmed Last Taken Type Levothyroxine [Synthroid] 50 mcg PO DAILY@0600 #30 tablet 04/24/18 07/03/19 07/02/19 Rx Cyclobenzaprine [Flexeril 10 MG 10 mg PO QDAY 07/03/19 07/03/19 07/02/19 History TAB] Ibuprofen [Motrin] 800 mg PO Q8HR PRN 07/03/19 07/03/19 06/30/19 History Levothyroxine [Synthroid] 50 mcg PO QDAY 07/03/19 07/03/19 07/02/19 History Lisinopril [Zestril TAB] 40 mg PO QDAY 07/03/19 07/03/19 07/02/19 History Metoprolol [Lopressor TAB] 50 mg PO QDAY 07/03/19 07/03/19 07/02/19 History Paroxetine HCl [Paxil] 30 mg PO QHS 07/03/19 07/03/19 07/02/19 History Quetiapine Fumarate [SEROquel] 50 mg PO QDAY 07/03/19 07/03/19 07/02/19 History Simvastatin 20 mg PO QDAY 07/03/19 07/03/19 07/02/19 History busPIRone [Buspar] 10 mg PO BID 07/03/19 07/03/19 06/30/19 History hydrOXYzine PAMOATE [Vistaril] 50 mg PO QHS 07/03/19 07/03/19 06/29/19 History Review of Systems Constitutional: no weight loss, no weight gain, no fever, no chills, no sweats Ears, nose, mouth and throat: no ear pain, no nose pain, no sinus pressure, no sinus pain Cardiovascular: palpitations, rapid/irregular heart beat, lightheadedness, shortness of breath, no chest pain, no orthopnea, no edema, no syncope, no high blood pressure, no leg edema Respiratory: shortness of breath, no cough, no congestion, no wheezing, no pain on inspiration Gastrointestinal: no abdominal pain, no nausea, no vomiting, no diarrhea, no constipation, no change in bowel habits Genitourinary Female: no pelvic pain, no flank pain, no dysuria, no urinary frequency, no urgency Musculoskeletal: no neck stiffness, no neck pain, no shooting arm pain, no arm numbness/tingling, no low back pain, no shooting leg pain Integumentary: no rash, no pruritis, no redness, no sores, no wounds Neurological: other (blurred vision ), no head injury, no paralysis, no weakness, no parathesias, no numbness, no tingling, no seizures, no syncope Psychiatric: no anxiety Endocrine: no cold intolerance, no heat intolerance Hematologic/Lymphatic: no easy bruising, no easy bleeding Allergic/Immunologic: no urticaria, no wheezing Physical Examination Vital Signs Temp Pulse Resp BP Pulse Ox 98.2 F 113 H 14 122/89 97 07/03/19 13:54 07/03/19 13:54 07/03/19 13:54 07/03/19 13:54 07/03/19 13:54 General appearance: no acute distress HEENT: Positive: PERRL, Normocephaly, Mucus Membranes Moist Neck: Positive: neck supple, trachea midline Cardiac: Positive: Reg Rate and Rhythm, S1/S2 Lungs: Positive: clear to auscultation Neuro: Positive: Grossly Intact Abdomen: Negative: Tender Skin: Negative: Rash Musculoskeletal: No Pain Extremities: Absent: edema Results 07/03/19 14:34 07/03/19 14:34 Coagulation 07/03/19 Range/Units 14:34 PT 13.1 (12.2-14.9) Sec. INR 1.02 (0.87-1.13) APTT 27.3 (24.2-36.6) Sec. CBC 07/03/19 Range/Units 14:34 WBC 5.7 (4.5-11.0) K/mm3 RBC 4.95 (3.65-5.03) M/mm3 Hgb 15.4 H (10.1-14.3) gm/dl Hct 45.3 H (30.3-42.9) % Plt Count 247 (140-440) K/mm3 Lymph # 2.4 (1.2-5.4) K/mm3 [place] # 0.5 (0.0-0.8) K/mm3 Eos # 0.3 (0.0-0.4) K/mm3 Baso # 0.0 (0.0-0.1) K/mm3 Comprehensive Metabolic Panel 07/03/19 Range/Units 14:34 Sodium 141 (137-145) mmol/L Potassium 4.1 (3.6-5.0) mmol/L Chloride 106.3 (98-107) mmol/L Carbon Dioxide 22 (22-30) mmol/L BUN 9 (7-17) mg/dL Creatinine 0.7 (0.7-1.2) mg/dL Glucose 108 H (65-100) mg/dL Calcium 8.7 (8.4-10.2) mg/dL - Imaging and Cardiology Echo: pending EKG: report reviewed, image reviewed EKG interpretations - Telemetry EKG Rhythm: Sinus Rhythm - EKG Sinus rhythms and dysrhythmias: sinus rhythm Assessment and Plan Electrolytes and thyroid profile WNL. Obtain echo. Resume home lopressor and titrate as tolerated. Cont to monitor on telemetry. Likely d/c home tomorrow. Pt may ultimately require SVT ablation. Will plan for OP EP referral. The patient has been seen in conjunction with Dr. Landon who agrees with the assessment and plan of care. - Patient Problems (1) Paroxysmal SVT (supraventricular tachycardia) Current Visit: Yes Status: Chronic (2) Urinary tract infection Current Visit: Yes Status: Acute
--- NOTE | 2019-07-03 16:29 | History and Physical Report ---
History of Present Illness Chief complaint: My heart was beating real fast History of present illness: 53 YO Female with Hypothyroidism, SVT, Noncompliance presents to ED for evaluation. Pt states that she has experienced chest palpitations over the past 1 day with worsening symptoms over the past 6 hours. Pt states that she also got dizzy and experienced blurry vision while standing up when her heart was beating really fast. EMS notified, and upon arrival the patient was found to have SVT. Pt was treated with adenosine with improvement in symptoms. Pt transported to [facility]. Pt seen and evaluated in ED and found to have SVT. Cardiology consulted in ED. Pt admitted to telemetry. Pt denies fever, chills, CP, NVD, Trauma, skin rash, BRBPR, unintentional weight loss, night sweats, heat intolerance, leg swelling, calf pain, shortness of breath, or recent ill contacts. Prior admission 04/22/18 reviewed. All medication listed was reconciled at time of admission. Past History Past Medical History: hypothyroidism, other (svt) Past Surgical History: Social history: . denies: smoking, alcohol abuse, prescription drug abuse Family history: hypertension Medications and Allergies Allergies Allergy/AdvReac Type Severity Reaction Status Date / Time tramadol AdvReac Unknown Verified 12/10/17 22:05 Home Medications Medication Instructions Recorded Confirmed Last Taken Type Levothyroxine [Synthroid] 50 mcg PO DAILY@0600 #30 tablet 04/24/18 07/03/19 07/02/19 Rx Cyclobenzaprine [Flexeril 10 MG 10 mg PO QDAY 07/03/19 07/03/19 07/02/19 History TAB] Ibuprofen [Motrin] 800 mg PO Q8HR PRN 07/03/19 07/03/19 06/30/19 History Levothyroxine [Synthroid] 50 mcg PO QDAY 07/03/19 07/03/19 07/02/19 History Lisinopril [Zestril TAB] 40 mg PO QDAY 07/03/19 07/03/19 07/02/19 History Metoprolol [Lopressor TAB] 50 mg PO QDAY 07/03/19 07/03/19 07/02/19 History Paroxetine HCl [Paxil] 30 mg PO QHS 07/03/19 07/03/19 07/02/19 History Quetiapine Fumarate [SEROquel] 50 mg PO QDAY 07/03/19 07/03/19 07/02/19 History Simvastatin 20 mg PO QDAY 07/03/19 07/03/19 07/02/19 History busPIRone [Buspar] 10 mg PO BID 07/03/19 07/03/19 06/30/19 History hydrOXYzine PAMOATE [Vistaril] 50 mg PO QHS 07/03/19 07/03/19 06/29/19 History Active Meds: Active Medications Metoprolol Tartrate (Lopressor) 25 mg PO BID ALANIS Review of Systems Constitutional: no weight loss, no weight gain, no fever, no chills Ears, nose, mouth and throat: no ear pain, no tinnitis, no nose pain, no nasal congestion, no sinus pressure Breasts: no change in shape, no swelling, no mass Cardiovascular: palpitations, rapid/irregular heart beat, lightheadedness, no chest pain, no orthopnea, no edema Respiratory: no cough, no cough with sputum, no hemoptysis, no shortness of breath, no dyspnea on exertion Gastrointestinal: no nausea, no vomiting, no diarrhea, no constipation, no change in bowel habits Genitourinary Female: no pelvic pain, no flank pain, no menorrhagia, no dysuria, no urinary frequency, no stress incontinence, no post void dribbling, no incomplete emptying Rectal: no pain, no incontinence, no bleeding Musculoskeletal: no neck stiffness, no neck pain, no shooting arm pain, no shooting leg pain, no redness of joints Integumentary: no rash, no pruritis, no redness, no sores, no wounds Neurological: no head injury, no transient paralysis, no weakness, no numbness, no tingling, no seizures, no syncope Psychiatric: no anxiety, no memory loss, no change in sleep habits, no sleep disturbances, no hypersomnia, no change in appetite Endocrine: no cold intolerance, no heat intolerance, no polyphagia, no excessive thirst Hematologic/Lymphatic: no easy bruising, no easy bleeding, no lymphedema Allergic/Immunologic: no wheezing, no persistent infections, no anaphylaxis, no angioedema Exam - Constitutional Vitals: Temp Pulse Resp BP Pulse Ox 98.2 F 97 H 31 H 129/104 97 07/03/19 13:54 07/03/19 16:00 07/03/19 16:00 07/03/19 16:00 07/03/19 16:00 General appearance: Present: mild distress - EENT Eyes: Present: PERRL ENT: hearing intact, clear oral mucosa - Neck Neck: Present: supple, normal ROM - Respiratory Respiratory effort: normal Respiratory: bilateral: CTA - Cardiovascular Rhythm: other (tachycardia) Heart Sounds: Present: S1 & S2. Absent: rub, click - Extremities Extremities: pulses symmetrical, No edema Peripheral Pulses: within normal limits - Abdominal General gastrointestinal: Present: soft, non-tender, non-distended, normal bowel sounds Female genitourinary: Present: normal - Integumentary Integumentary: Present: clear, warm, dry - Musculoskeletal Musculoskeletal: gait normal, strength equal bilaterally - Psychiatric Psychiatric: appropriate mood/affect, intact judgment & insight - Neurologic Neurologic: CNII-XII intact, moves all extremities Results - Labs CBC & Chem 7: 07/03/19 14:34 07/03/19 14:34 Labs: Abnormal lab results 07/03/19 07/03/19 Range/Units 14:34 14:34 Hgb 15.4 H (10.1-14.3) gm/dl Hct 45.3 H (30.3-42.9) % Lymph % (Auto) 41.4 H (13.4-35.0) % [place] % (Auto) 8.6 H (0.0-7.3) % Eos % (Auto) 4.4 H (0.0-4.3) % Glucose 108 H (65-100) mg/dL Assessment and Plan - Patient Problems (1) SVT (supraventricular tachycardia) Current Visit: Yes Status: Acute Plan to address problem: Admit to telemetry, continue beta [place] therapy, cardiology consulted, supportive care, thyroid panel, (2) Hypothyroidism Current Visit: Yes Status: Acute Plan to address problem: thyroid panel, continue current therapy after thyroid panel and T4 within normal reference range (3) Obesity Current Visit: Yes Status: Acute Qualifiers: Body mass index: BMI 40.0-44.9 Plan to address problem: balanced diet, increased physical activity at discharge, supportive care (4) DVT prophylaxis Current Visit: Yes Status: Acute Plan to address problem: SCD to BLE while in bed, supportive care.
[2019-07-03] MEDS ORDERED: TYLENOL PO PRN (16:32)
[2019-07-03] MEDS ORDERED: PROVENTIL IH PRN (16:32)
[2019-07-03] MEDS ORDERED: ZOFRAN IV PRN (16:32)
[2019-07-03] MEDS ORDERED: SODIUM CHLORIDE FLUSH SYRINGE 10 ML IV PRN (16:32)
[2019-07-03] MEDS ORDERED: IBUPROFEN PO PRN (16:33)
[2019-07-03] MEDS ORDERED: NACL 0.45% 1000 ML 1,000 ML IV SCH (17:00)
[2019-07-03 18:21] LABS: Bilirubin,Urine NEG (Negative); Blood,Urine SM (Negative); Color,Urine Yellow (Yellow); Protein,Urine <15 mg/dL mg/dL (Negative); Urobilinogen,Urine < 2.0 mg/dL (<2.0); WBC,Urine < 1.0 /HPF (0.0-6.0)
[2019-07-03] MEDS ORDERED: PRAVACHOL PO SCH (22:00)
[2019-07-03] MEDS ORDERED: LOPRESSOR PO SCH (22:00)
[2019-07-03] MEDS ORDERED: PAXIL PO SCH (22:00)
[2019-07-03] MEDS ORDERED: SODIUM CHLORIDE FLUSH SYRINGE 10 ML IV SCH (22:00)
[2019-07-03] MEDS ORDERED: NON-FORMULARY (Paroxetine Hcl [Paxil] 30 MG) PO SCH (22:00)
[2019-07-03] MEDS ORDERED: VISTARIL PO SCH (22:00)
[2019-07-03] MEDS: BUSPAR PO SCH (22:59)
[2019-07-04 05:29] LABS: Basophils % (Auto) 0.5 % (0.0-1.8); Eosinophils # (Auto) 0.3 K/mm3 (0.0-0.4); Eosinophils % (Auto) 4.7 % (0.0-4.3); Hematocrit 38.8 % (30.3-42.9); Hemoglobin 13.1 gm/dl (10.1-14.3); Lymphocytes # (Auto) 2.8 K/mm3 (1.2-5.4); Lymphocytes % (Auto) 39.1 % (13.4-35.0); Mean Corpuscular HGB Conc 34 % (30-34); Mean Corpuscular Volume 93 fl (79-97); Monocytes # (Auto) 0.5 K/mm3 (0.0-0.8); Monocytes % (Auto) 7.6 % (0.0-7.3); Platelet Count 206 K/mm3 (140-440); Red Blood Count 4.19 M/mm3 (3.65-5.03); Red Cell Distribution Width 14.7 % (13.2-15.2)
[2019-07-04 05:57] LABS: Alanine Aminotransferase 20 units/L (7-56); Albumin 3.4 g/dL (3.9-5); BUN/Creatinine Ratio 20; Blood Urea Nitrogen 12 mg/dL (7-17); Calcium 8.1 mg/dL (8.4-10.2); Hemolysis Index 3
[2019-07-04] MEDS ORDERED: SYNTHROID PO SCH (06:00)
[2019-07-04] MEDS ORDERED: NON-FORMULARY (Quetiapine Fumarate [Seroquel] 50 MG) PO SCH (10:00)
[2019-07-04] MEDS ORDERED: ZESTRIL PO SCH (10:00)
[2019-07-04] MEDS ORDERED: LOPRESSOR PO SCH (10:00)
[2019-07-04] MEDS ORDERED: NON-FORMULARY (Simvastatin [Simvastatin] 20 MG) PO SCH (10:00)
[2019-07-04] MEDS ORDERED: FLEXERIL PO SCH (10:00)
--- NOTE | 2019-07-04 10:39 | Progress Note ---
Assessment and Plan (1) Paroxysmal SVT (supraventricular tachycardia) Current Visit: Yes Status: Chronic (2) Urinary tract infection Current Visit: Yes Status: Acute Patient may be discharged home. Office follow-up. Will not make a commitment to penicillin atrial tachycardia then decide ablation treatment for the same. We do not have any strips from the ambulance for review. Subjective Date of service: 07/04/19 Interval history: Patient did not have any further episodes of palpitations. Telemetry unremarkable. Objective Vital Signs Temp Pulse Resp BP BP Pulse Ox 07/04/19 08:53 95 07/04/19 08:33 72 07/04/19 07:59 97.8 F 75 18 103/61 91 07/04/19 03:57 97.4 F L 69 20 94/59 94 07/03/19 23:27 97.4 F L 76 20 94/67 91 07/03/19 21:46 89 138/95 07/03/19 21:23 96 07/03/19 20:30 79 18 150/109 100 07/03/19 20:21 78 15 144/99 100 07/03/19 20:11 74 18 141/101 100 07/03/19 20:00 83 18 141/101 99 07/03/19 19:51 84 10 L 150/102 100 07/03/19 19:41 83 10 L 159/110 100 07/03/19 19:34 101 H 07/03/19 19:30 25 H 159/110 07/03/19 19:21 132 H 16 171/121 100 07/03/19 19:12 149 H 18 126/82 07/03/19 18:11 97 H 25 H 126/82 07/03/19 18:01 101 H 23 126/82 07/03/19 17:59 100 H 21 126/82 07/03/19 17:41 96 H 20 141/96 93 07/03/19 17:33 99 H 07/03/19 17:30 103 H 23 141/96 96 07/03/19 17:21 91 H 19 132/95 94 07/03/19 17:11 90 13 127/89 94 07/03/19 17:00 92 H 20 127/89 97 07/03/19 16:51 99 H 12 141/93 95 07/03/19 16:30 98 H 30 H 138/93 94 07/03/19 16:00 97 H 31 H 129/104 97 07/03/19 15:30 92 H 19 116/85 94 07/03/19 15:00 93 H 17 112/78 93 07/03/19 14:50 102 H 18 124/74 100 07/03/19 14:30 105 H 11 L 107/78 95 07/03/19 14:00 102 H 21 122/89 93 07/03/19 13:54 98.2 F 113 H 14 122/89 97 07/03/19 13:44 113 H - Physical Examination HEENT: Positive: PERRL, Normocephaly, Mucus Membranes Moist Neck: Positive: neck supple, trachea midline Neuro: Positive: Grossly Intact Abdomen: Negative: Tender Skin: Negative: Rash Musculoskeletal: No Pain Extremities: Absent: edema - Labs and Meds Cardiac Enzymes 07/04/19 Range/Units 03:38 AST 25 (5-40) units/L Coagulation 07/03/19 Range/Units 14:34 PT 13.1 (12.2-14.9) Sec. INR 1.02 (0.87-1.13) APTT 27.3 (24.2-36.6) Sec. CBC 07/03/19 07/04/19 Range/Units 14:34 03:38 WBC 5.7 7.2 (4.5-11.0) K/mm3 RBC 4.95 4.19 (3.65-5.03) M/mm3 Hgb 15.4 H 13.1 (10.1-14.3) gm/dl Hct 45.3 H 38.8 D (30.3-42.9) % Plt Count 247 206 (140-440) K/mm3 Lymph # 2.4 2.8 (1.2-5.4) K/mm3 [place] # 0.5 0.5 (0.0-0.8) K/mm3 Eos # 0.3 0.3 (0.0-0.4) K/mm3 Baso # 0.0 0.0 (0.0-0.1) K/mm3 Comprehensive Metabolic Panel 07/03/19 07/04/19 Range/Units 14:34 03:38 Sodium 141 140 (137-145) mmol/L Potassium 4.1 3.5 L (3.6-5.0) mmol/L Chloride 106.3 103.8 (98-107) mmol/L Carbon Dioxide 22 25 (22-30) mmol/L BUN 9 12 (7-17) mg/dL Creatinine 0.7 0.6 L (0.7-1.2) mg/dL Glucose 108 H 94 (65-100) mg/dL Calcium 8.7 8.1 L (8.4-10.2) mg/dL AST 25 (5-40) units/L ALT 20 (7-56) units/L Alkaline Phosphatase 98 (35-129) units/L Total Protein 6.6 (6.3-8.2) g/dL Albumin 3.4 L (3.9-5) g/dL - Imaging and Cardiology EKG: report reviewed, image reviewed Echo: pending - EKG Sinus rhythms and dysrhythmias: sinus rhythm
[2019-07-04] MEDS: BUSPAR PO SCH (11:12)
[2019-07-04 11:56] VITALS: BP 131/89
--- NOTE | 2019-07-04 15:54 | Discharge Summary ---
Providers - Providers Date of Admission: 07/04/19 09:49 Date of discharge: 07/04/19 Attending physician: VENKAT DURBIN 07/03/19 14:56 Consult to Physician [CONS] Stat Comment: DSriW AJAY PETERSON Consulting Provider: GAVIOTA REVELES Physician Instructions: Reason For Exam: SVT Primary care physician: DAMI ESPINOZA Hospitalization Condition: Stable Pertinent studies: Chest x-ray 2-D echocardiogram Hospital course: 53 YO Female with Hypothyroidism, SVT, Noncompliance presents to ED for evaluation of chest palpitations , dizzy and experienced blurry vision while standing up. EMS notified, and upon arrival the patient was found to have SVT. Pt was treated with adenosine with improvement in symptoms. Pt transported to [facility]. Pt seen and evaluated in ED , Cardiology consulted, Pt admitted to telemetry. Admission ECG shows NSR with no acute changes. Pt denies any excessive caffeine intake or illicit drug use, she does not drink alcohol. Of note, pt was evaluated in [facility] ED in 05/2018 for SVT. At that time, pt reported a history of multiple episodes of SVT since September 2017. Her Electrolytes and thyroid profile WNL. Obtained echo showed preserved EF. Resumed home lopressor and titrated as tolerated. Pt may ultimately require SVT ablation. plan for OP EP referral. She was discharged home in stable condition with outpatient follow-up. Discharge diagnoses: (1) Paroxysmal SVT (supraventricular tachycardia) Current Visit: Yes Status: Chronic (2) Urinary tract infection Current Visit: Yes Status: Acute Disposition: DC-01 TO HOME OR SELFCARE Time spent for discharge: 34 minutes Core Measure Documentation - Palliative Care Palliative Care/ Comfort Measures: Not Applicable - Core Measures Any of the following diagnoses?: none Exam - Constitutional Vitals: Temp Pulse Resp BP Pulse Ox 97.8 F 72 20 131/89 98 07/04/19 07:59 07/04/19 08:33 07/04/19 11:17 07/04/19 11:17 07/04/19 10:00 General appearance: Present: no acute distress, obese - EENT Eyes: Present: PERRL ENT: hearing intact, clear oral mucosa - Neck Neck: Present: supple, normal ROM - Respiratory Respiratory effort: normal Respiratory: bilateral: CTA - Cardiovascular Heart Sounds: Present: S1 & S2. Absent: rub, click - Extremities Extremities: pulses symmetrical, No edema Peripheral Pulses: within normal limits - Abdominal General gastrointestinal: Present: soft, non-tender, non-distended, normal bowel sounds - Integumentary Integumentary: Present: clear, warm, dry - Musculoskeletal Musculoskeletal: gait normal, strength equal bilaterally - Psychiatric Psychiatric: appropriate mood/affect, intact judgment & insight - Neurologic Neurologic: CNII-XII intact, moves all extremities Plan Activity: advance as tolerated Weight Bearing Status: Weight Bear as Tolerated Diet: low fat, low salt Follow up with: DAMI ESPINOZA MD [Primary Care Provider] - 3-5 Days GAVIOTA REVELES MD [Staff Physician] - 7 Days Prescriptions: Metoprolol [Lopressor TAB] 25 mg PO BID #60 tablet
== END 2019-07-04 16:50 | disposition home or self-care (01) | DRG 309 ==
LOC: ED 13:41 → 4A 16:32 → OBSVTOIN 07-04 09:49
PROVIDERS: ADMIT Internal Medicine; ATTEND Internal Medicine
DX: I47.1 Supraventricular tachycardia (principal); N39.0 Urinary tract infection, site not specified; E03.9 Hypothyroidism, unspecified; F31.9 Bipolar disorder, unspecified; I10 Essential (primary) hypertension; E66.9 Obesity, unspecified; Z91.14 Patient's other noncompliance with medication regimen; Z82.49 Family history of ischemic heart disease and other diseases of the circulatory system; Z79.899 Other long term (current) drug therapy; Z68.39 Body mass index [BMI] 39.0-39.9, adult; Z71.3 Dietary counseling and surveillance
CPT/HCPCS: 36415; 71045; 80048; 80053; 81001; 83735; 84439; 84443; 84484; 85025; 85610; 85730; 93005; 93010; 93306; G0378; A9270-GY; J7030; Q0177

== ENCOUNTER 2019-11-05 13:09 | Outpatient (CLI) | payer MEDICAID ==
--- NOTE | 2019-11-05 15:33 | XRay Report ---
CHEST 2 VIEWS INDICATION / CLINICAL INFORMATION: J44.9 COPD/R06.00 DYSPNEA UNSPECIFIED. COMPARISON: 07/03/2019 FINDINGS: SUPPORT DEVICES: None. HEART / MEDIASTINUM: No significant abnormality. LUNGS / PLEURA: No significant pulmonary or pleural abnormality. No pneumothorax. ADDITIONAL FINDINGS: No significant additional findings. IMPRESSION: 1. No acute findings. Signer Name: Orville Nevarez MD Signed: 11/05/2019 3:29 PM Workstation Name: [id number]
== END 2019-11-05 13:10 | disposition home or self-care (01) ==
LOC: XRAY 13:09
PROVIDERS: ATTEND Internal Medicine
DX: J44.9 Chronic obstructive pulmonary disease, unspecified (principal); M25.511 Pain in right shoulder; R06.00 Dyspnea, unspecified
CPT/HCPCS: 71046

== ENCOUNTER 2019-11-11 13:39 | Outpatient (CLI) | payer MEDICAID ==
--- NOTE | 2019-11-11 16:02 | XRay Report ---
Left shoulder-3 views INDICATION: PAIN IN LEFT SHOULDER. COMPARISON: None. IMPRESSION: No acute osseous or soft tissue abnormality. No significant DJD. Signer Name: Abhinav Barros MD Signed: 11/11/2019 3:57 PM Workstation Name: [id number]
== END 2019-11-11 13:40 | disposition home or self-care (01) ==
LOC: XRAY 13:39
PROVIDERS: ATTEND Internal Medicine
DX: M25.512 Pain in left shoulder (principal)

== ENCOUNTER 2021-01-11 11:34 | Emergency (ER) | payer MEDICAID ==
[2021-01-11 12:30] VITALS: BP 137/98
--- NOTE | 2021-01-11 13:06 | Emergency Department Report ---
ED General Adult HPI - General Chief complaint: Medical Clearance Stated complaint: PAIN WHEN BREATHING/COUGH/SNIFFLES Time Seen by Provider: 01/11/21 13:00 Source: patient Mode of arrival: Ambulatory Limitations: No Limitations - History of Present Illness Initial comments: 55-year-old morbid obese female presents to the emergency room for shortness of breath and loss of taste and smell for 2 days. She admits to sniffles and a cough. Patient has a history of hypertension, asthma, sleep apnea, anxiety, depression, SVT and cholesterolemia. Patient reports she has appointment with her primary care doctor tomorrow. -: This morning Location: chest Consistency: intermittent Improves with: none Worsens with: none Associated Symptoms: cough, other (Loss of taste and smell) - Related Data Home Medications Medication Instructions Recorded Confirmed Last Taken Cyclobenzaprine [Flexeril 10 MG 10 mg PO QDAY 07/03/19 07/03/19 07/02/19 TAB] Ibuprofen [Motrin 800 MG tab] 800 mg PO Q8HR PRN 07/03/19 07/03/19 06/30/19 Levothyroxine [Synthroid] 50 mcg PO QDAY 07/03/19 07/03/19 07/02/19 Simvastatin 20 mg PO QDAY 07/03/19 07/03/19 07/02/19 busPIRone [Buspar] 10 mg PO BID 07/03/19 07/03/19 06/30/19 hydrOXYzine PAMOATE [Vistaril] 50 mg PO QHS 07/03/19 07/03/19 06/29/19 lisinopriL [Zestril TAB] 40 mg PO QDAY 07/03/19 07/03/19 07/02/19 Previous Rx's Medication Instructions Recorded Last Taken Type Levothyroxine [Synthroid] 50 mcg PO DAILY@0600 #30 tablet 04/24/18 07/02/19 Rx Metoprolol [Lopressor TAB] 25 mg PO BID #60 tablet 07/04/19 Unknown Rx Allergies Allergy/AdvReac Type Severity Reaction Status Date / Time tramadol AdvReac Unknown Verified 01/11/21 12:25 ED Review of Systems ROS: Stated complaint: PAIN WHEN BREATHING/COUGH/SNIFFLES Other details as noted in HPI ED Past Medical Hx - Past Medical History Hx Hypertension: Yes Hx Arthritis: Yes Hx Psychiatric Treatment: Yes (depression bi polar, anxiety) Additional medical history: SVT, "frozen" left shoulder, degenerative disk disease, hypothyroid Panic Attacks - Surgical History Additional Surgical History: 4 - Social History Smoking Status: Never Smoker - Medications Home Medications: Home Medications Medication Instructions Recorded Confirmed Last Taken Type Levothyroxine [Synthroid] 50 mcg PO DAILY@0600 #30 tablet 04/24/18 07/03/19 07/02/19 Rx Cyclobenzaprine [Flexeril 10 MG 10 mg PO QDAY 07/03/19 07/03/19 07/02/19 History TAB] Ibuprofen [Motrin 800 MG tab] 800 mg PO Q8HR PRN 07/03/19 07/03/19 06/30/19 History Levothyroxine [Synthroid] 50 mcg PO QDAY 07/03/19 07/03/19 07/02/19 History Simvastatin 20 mg PO QDAY 07/03/19 07/03/19 07/02/19 History busPIRone [Buspar] 10 mg PO BID 07/03/19 07/03/19 06/30/19 History hydrOXYzine PAMOATE [Vistaril] 50 mg PO QHS 07/03/19 07/03/19 06/29/19 History lisinopriL [Zestril TAB] 40 mg PO QDAY 07/03/19 07/03/19 07/02/19 History Metoprolol [Lopressor TAB] 25 mg PO BID #60 tablet 07/04/19 Unknown Rx ED Physical Exam - General Limitations: No Limitations General appearance: alert, in no apparent distress - Head Head exam: Present: atraumatic, normocephalic - Eye Eye exam: Present: normal appearance - ENT ENT exam: Present: mucous membranes moist - Neck Neck exam: Present: normal inspection - Respiratory Respiratory exam: Present: normal lung sounds bilaterally. Absent: respiratory distress - Cardiovascular Cardiovascular Exam: Present: regular rate, normal rhythm. Absent: systolic murmur, diastolic murmur, rubs, gallop - GI/Abdominal GI/Abdominal exam: Present: soft, normal bowel sounds - Extremities Exam Extremities exam: Present: normal inspection - Back Exam Back exam: Present: normal inspection - Neurological Exam Neurological exam: Present: alert, oriented X3 - Psychiatric Psychiatric exam: Present: normal affect, normal mood - Skin Skin exam: Present: warm, dry, intact, normal color. Absent: rash ED Course Vital Signs 01/11/21 01/11/21 12:28 12:29 Temperature 98.0 F Pulse Rate 102 H Respiratory 18 Rate Blood Pressure 137/98 [Right] O2 Sat by Pulse 96 Oximetry ED Medical Decision Making - Radiology Data Radiology results: report reviewed Patient: ALYX BOLAÑOS MR#: [id number] : 1965 Acct:[id number] Age/Sex: 55 / F ADM Date: 01/11/21 Loc: ED Attending Dr: Ordering Physician: JAKE LOPEZ Date of Service: 01/11/21 Procedure(s): XR chest routine 2V Accession Number(s): [id number] cc: JAKE LOPEZ Fluoro Time In Minutes: CHEST 2 VIEWS INDICATION / CLINICAL INFORMATION: sob,cough and rales. COMPARISON: 11/05/2019 FINDINGS: SUPPORT DEVICES: None. HEART / MEDIASTINUM: Stable. LUNGS / PLEURA: No significant pulmonary or pleural abnormality. No pneumothorax. ADDITIONAL FINDINGS: No significant additional findings. IMPRESSION: 1. No acute findings or significant interval change. Signer Name: Rickey Gilliland MD Signed: 01/11/2021 1:47 PM Workstation Name: [id number] Transcribed By: Dictated By: RICKEY GILLILAND III Electronically Authenticated By: RICKEY GILLILAND III Signed Date/Time: 01/11/21 1347 DD/ 1346 TD/TT: - Medical Decision Making 55-year-old morbid obese female presents to the emergency room for shortness of breath and loss of taste and smell for 2 days. She admits to sniffles and a cough. Patient has a history of hypertension, asthma, sleep apnea, anxiety, depression, SVT and cholesterolemia. Patient reports she has appointment with her primary care doctor tomorrow. Patient is currently menopausal. Critical care attestation.: If time is entered above; I have spent that time in minutes in the direct care of this critically ill patient, excluding procedure time. ED Disposition Clinical Impression: Shortness of breath Disposition: DC-01 TO HOME OR SELFCARE Is pt being admited?: No Does the pt Need Aspirin: No Condition: Stable Instructions: Shortness of Breath, Adult, [id number] Additional Instructions: Your symptoms appear most consistent with a nonspecific viral syndrome. However, given this current pandemic, COVID-19 is in the differential of possibilities. Despite your previous negative COVID-19 test, I do recommend repeat outpatient Covid 19 testing. In the meantime, isolate/quarantine yourself and stay away from anyone who is elderly, immunocompromised or chronically ill. You can use ibuprofen every 6-8 hours and Tylenol every 4-8 hours, using the dosing on the back of the bottle, as needed for any fever or body aches. Return to the emergency department with any worsening of your symptoms, development of chest pain or shortness of breath, or with any acute distress. Chest x-ray is negative for any acute findings. Keep your appointment with your provider tomorrow. Referrals: PRIMARY CARE, [Primary Care Provider] - 3-5 Days Your, primary care provider [Other] - 3-5 Days Forms: Work/School Release Form(ED)
--- NOTE | 2021-01-11 13:51 | XRay Report ---
CHEST 2 VIEWS INDICATION / CLINICAL INFORMATION: sob,cough and rales. COMPARISON: 11/05/2019 FINDINGS: SUPPORT DEVICES: None. HEART / MEDIASTINUM: Stable. LUNGS / PLEURA: No significant pulmonary or pleural abnormality. No pneumothorax. ADDITIONAL FINDINGS: No significant additional findings. IMPRESSION: 1. No acute findings or significant interval change. Signer Name: Rickey Gilliland MD Signed: 01/11/2021 1:47 PM Workstation Name: [id number]
== END 2021-01-11 14:42 | disposition home or self-care (01) ==
LOC: ED 11:34
DX: R06.02 Shortness of breath (principal); R05 Cough; I10 Essential (primary) hypertension; M19.91 Primary osteoarthritis, unspecified site; F31.9 Bipolar disorder, unspecified; Z98.890 Other specified postprocedural states; Z79.1 Long term (current) use of non-steroidal anti-inflammatories (NSAID); Z79.899 Other long term (current) drug therapy; Z88.8 Allergy status to other drugs, medicaments and biological substances
CPT/HCPCS: 71046; 93005

== ENCOUNTER 2021-05-19 17:04 | Observation (INO) | payer MEDICAID ==
[2021-05-19] MEDS ORDERED: ACETAMINOPHEN 325 MG TAB PO STA (18:14)
[2021-05-19] MEDS ORDERED: SODIUM CHLORIDE 0.9% 500 ML 500 ML IV ONE (18:14)
[2021-05-19] MEDS ORDERED: KETOROLAC 30 MG/1 ML INJ IV ONE (18:14)
--- NOTE | 2021-05-19 18:16 | Emergency Department Report ---
ED General Adult HPI - General Chief complaint: Arrhythmia/Palpitations Stated complaint: My SVT went off again, and my left chest hurts PUI?: No Time Seen by Provider: 05/19/21 17:49 Source: patient, EMS ( EMS documentation not available at time of chart dictation ), RN notes reviewed Mode of arrival: Stretcher Limitations: No Limitations - History of Present Illness Initial comments: During the entire history and physical examination, I am chaperoned by nurse Mikki Velázquez Past medical history: Body mass index of 39, hypothyroidism, paroxysmal SVT, obstructive sleep apnea, intermittently compliant with CPAP, high cholesterol, questionable hypertension The patient is a 55-year-old female. The patient is brought to the hospital today with a complaint of nontraumatic left-sided chest wall pain, and sensation of SVT. As per collateral information obtained from nursing staff, patient was in SVT in the field, received 6 mg of adenosine, which terminated her SVT. The patient denies headache, neck pain, abdominal pain, vomiting, she is chronic shortness of breath, she denies leg pain or leg swelling, denies DVT and pulmonary embolism risk factors. She reports she is up-to-date with Covid vaccination series. She is right-hand dominant, and has been doing some heavy lifting at home. She does report that simultaneously while SVT developed, she developed nonradiating central and left-sided chest pain. The patient reports her last episode of SVT was 9 months ago. She reports that she is a poor sleeper at baseline and is intermittently compliant with her CPAP. She believes she has taken aspirin within the past 7 days. She also believes that she was recommended for an outpatient ablation study which she declined. No recent cardiac stress test or catheterization that she is aware of. She does report that she has a number of family members with "heart problems." She does not think any of her personal family members have a history of DVT or PE. At the moment, she still has left-sided reproducible chest wall pain, but otherwise feels like she is back to her baseline. -: Sudden, hour(s) Location: chest Radiation: non-radiation Severity scale (0 -10): 5 Quality: aching Consistency: constant Improves with: rest Worsens with: movement - Related Data Home Medications Medication Instructions Recorded Confirmed Last Taken Cyclobenzaprine [Flexeril 10 MG 10 mg PO PRN PRN 08/21/19 07/07/21 08/20/19 TAB] Ibuprofen [Motrin 800 MG tab] 800 mg PO Q8HR PRN 07/03/19 05/19/21 05/18/21 Levothyroxine [Synthroid] 50 mcg PO QDAY 07/03/19 05/19/21 05/18/21 Simvastatin 20 mg PO QDAY 07/03/19 05/19/21 05/18/21 busPIRone [Buspar] 10 mg PO BID 07/03/19 05/19/21 1 Day Ago ~05/18/21 hydrOXYzine PAMOATE [Vistaril] 50 mg PO QHS 07/03/19 05/19/21 1 Week Ago ~05/12/21 lisinopriL [Zestril TAB] 40 mg PO QDAY 07/03/19 05/19/21 05/18/21 PROzac 50 mg PO DAILY 05/19/21 05/19/21 05/18/21 SEROquel 100 mg PO DAILY 05/19/21 05/19/21 05/18/21 Previous Rx's Medication Instructions Recorded Last Taken Type Metoprolol [Lopressor TAB] 25 mg PO BID #60 tablet 07/04/19 05/18/21 Rx Allergies Allergy/AdvReac Type Severity Reaction Status Date / Time tramadol AdvReac Unknown Verified 01/11/21 12:25 ED Review of Systems ROS: Stated complaint: CHEST PAIN Other details as noted in HPI Constitutional: malaise. denies: fever Eyes: denies: eye discharge ENT: denies: epistaxis Respiratory: shortness of breath (Chronic shortness of breath). denies: cough Cardiovascular: chest pain, palpitations Gastrointestinal: denies: abdominal pain, vomiting, hematemesis, melena, hematochezia Genitourinary: denies: dysuria Musculoskeletal: myalgia Neurological: weakness Psychiatric: anxiety Hematological/Lymphatic: denies: easy bleeding ED Past Medical Hx - Past Medical History Hx Hypertension: Yes Hx Arthritis: Yes Hx Psychiatric Treatment: Yes (depression bi polar, anxiety) Additional medical history: SVT, "frozen" left shoulder, degenerative disk disease, hypothyroid Panic Attacks - Surgical History Additional Surgical History: 4 - Social History Smoking Status: Never Smoker Substance Use Type: None - Medications Home Medications: Home Medications Medication Instructions Recorded Confirmed Last Taken Type Cyclobenzaprine [Flexeril 10 MG 10 mg PO PRN PRN 07/03/19 05/19/21 07/02/19 History TAB] Ibuprofen [Motrin 800 MG tab] 800 mg PO Q8HR PRN 07/03/19 05/19/21 05/18/21 History Levothyroxine [Synthroid] 50 mcg PO QDAY 07/03/19 05/19/21 05/18/21 History Simvastatin 20 mg PO QDAY 07/03/19 05/19/21 05/18/21 History busPIRone [Buspar] 10 mg PO BID 07/03/19 05/19/21 1 Day Ago History ~05/18/21 hydrOXYzine PAMOATE [Vistaril] 50 mg PO QHS 07/03/19 05/19/21 1 Week Ago History ~05/12/21 lisinopriL [Zestril TAB] 40 mg PO QDAY 07/03/19 05/19/21 05/18/21 History Metoprolol [Lopressor TAB] 25 mg PO BID #60 tablet 07/04/19 05/19/21 05/18/21 Rx PROzac 50 mg PO DAILY 05/19/21 05/19/21 05/18/21 History SEROquel 100 mg PO DAILY 05/19/21 05/19/21 05/18/21 History ED Physical Exam - General Limitations: No Limitations, Physical Limitation General appearance: alert, anxious, obese - Head Head exam: Present: atraumatic, normocephalic - Eye Eye exam: Present: normal appearance, EOMI. Absent: nystagmus - ENT ENT exam: Present: normal exam, normal orophraynx, mucous membranes moist, normal external ear exam - Neck Neck exam: Present: normal inspection, full ROM. Absent: tenderness, meningismus - Respiratory Respiratory exam: Present: normal lung sounds bilaterally, chest wall tenderness. Absent: respiratory distress, wheezes, rales, rhonchi, stridor, decreased breath sounds - Cardiovascular Cardiovascular Exam: Present: regular rate, normal rhythm, normal heart sounds. Absent: bradycardia, tachycardia, irregular rhythm, systolic murmur, diastolic murmur, rubs, gallop - GI/Abdominal GI/Abdominal exam: Present: soft. Absent: distended, tenderness, guarding, rebound, rigid, pulsatile mass - Extremities Exam Extremities exam: Present: normal inspection, full ROM, other (2+ pulses noted in the bilateral upper and lower extremities. There is no palpable cord. negative Homans sign. Muscular compartments are soft. The pelvis is stable.). Absent: pedal edema, calf tenderness - Back Exam Back exam: Present: normal inspection, full ROM. Absent: tenderness, CVA tenderness (R), CVA tenderness (L), paraspinal tenderness, vertebral tenderness - Neurological Exam Neurological exam: Present: alert, oriented X3, other (No facial droop. Tongue midline. Extraocular movements intact bilaterally. Facial sensation intact to light touch in V1, V2, V3 distribution bilaterally. 5 and a 5 strength in 4 extremities. Sensation intact to light touch in 4 extremities.). Absent: motor sensory deficit - Psychiatric Psychiatric exam: Present: anxious - Skin Skin exam: Present: warm, dry, intact, normal color. Absent: rash ED Course Vital Signs 05/19/21 05/19/21 05/19/21 17:32 17:42 18:00 Temperature 98.5 F Pulse Rate 90 91 H 88 Respiratory 10 L 21 15 Rate Blood Pressure 114/77 Blood Pressure 114/78 [Right] O2 Sat by Pulse 96 98 Oximetry 05/19/21 05/19/21 05/19/21 18:30 19:00 19:30 Temperature Pulse Rate 81 77 74 Respiratory 25 H 18 14 Rate Blood Pressure 114/77 114/81 117/71 Blood Pressure [Right] O2 Sat by Pulse 94 97 Oximetry 05/19/21 05/19/21 05/19/21 20:00 20:30 21:06 Temperature Pulse Rate 72 71 Respiratory 21 15 14 Rate Blood Pressure 119/80 149/94 149/94 Blood Pressure [Right] O2 Sat by Pulse 93 98 96 Oximetry 05/19/21 05/19/21 05/19/21 21:30 22:00 22:30 Temperature Pulse Rate Respiratory 11 L 13 12 Rate Blood Pressure 149/94 141/97 146/93 Blood Pressure [Right] O2 Sat by Pulse 97 97 98 Oximetry - Reevaluation(s) Reevaluation #1: 05/19/21 18:25 Differential diagnosis, including but not limited to: Paroxysmal SVT, acute coronary syndrome, costochondritis, pulmonary embolism, pneumonia, obstructive sleep apnea, pulmonary hypertension, noncompliance Assessment and plan: 55-year-old female, with a history of BMI 39, obstructive sleep apnea, known noncompliance, noncompliant with nocturnal CPAP, presenting with left-sided chest pain, in the context of recurrent SVT. SVT resolved. Patient still having chest pain. She is not currently tachycardic, tachypneic or hypoxic. She denies DVT and pulmonary embolism risk factors and she is low risk by Wells criteria. She has equal pulses in the upper and lower extremities, no pulsatile abdominal masses; aortic disease is unlikely. She does have a heart score of 4, and is at risk for major adverse cardiac event. Have recommended appropriate laboratory studies, x-ray of the chest, we will treat her pain, and reassess after initial data points. No recent cardiac risk ratification, no personal deposit refund clerk that she follows up with. We anticipate admission for cardiac or stratification. Have discussed this plan of care with the patient. She has articulated understanding. 05/19/21 21:22 CT scan of the chest was obtained because of positive D-dimer. Patient amenable to admission hospitalization for cardiac risk ratification. Hospital physician, Dr. Tahmina Roth to admit 05/19/21 22:59 CT scan of the chest negative for pulmonary embolism. Atelectasis and interstitial edema suggested. There may be a component of right-sided heart failure, likely secondary to obesity, and noncompliance with CPAP. Low-dose L asix ordered. Defer to inpatient team to further manage. Patient does not have crackles or rales on my examination. Clinically, she is not grossly fluid overloaded. ED Medical Decision Making - Lab Data Result diagrams: 05/19/21 18:24 05/19/21 18:24 Vital Signs 05/19/21 17:42 Temperature 98.5 F Pulse Rate 91 H Respiratory 21 Rate Blood Pressure 114/78 [Right] O2 Sat by Pulse 96 Oximetry - EKG Data -: EKG Interpreted by Me EKG shows normal: sinus rhythm Rate: normal - EKG Data Interpretation: unchanged when compared t 05/19/21 18:27 The EKG is interpreted at 17: 40 Sinus rhythm, 90 bpm, normal P wave axis, left axis deviation, left anterior fascicular block, poor R wave progression, QTC 437 ms. This is an abnormal EKG. This is not a STEMI. This EKG appears to be unchanged when compared to prior EKG from 01/11/2021 - Radiology Data Radiology results: pending, report reviewed, image reviewed Ordering Physician: ALFRED SCHAEFER MD Date of Service: 05/19/21 Procedure(s): CT angio chest Accession Number(s): [id number] cc: ALFRED SCHAEFER MD CT angio chest INDICATION / CLINICAL INFORMATION: Acute chest pain. Abnormal EKG.. TECHNIQUE: Axial CT images were obtained through the chest after injection of IV contrast. 3 plane MIP and/or 3D reconstructions were produced. All CT scans at this location are performed using CT dose reduction for ALARA by means of automated exposure control. COMPARISON: None available. FINDINGS: PULMONARY ARTERIES: No pulmonary emboli. HEART: No significant abnormality. MEDIASTINUM / JEFF: No significant abnormality. LUNGS: Mild dependent groundglass opacities. Mild peribronchial and interlobular septal thickening. No pleural effusion. No pneumothorax. ADDITIONAL FINDINGS: None. UPPER ABDOMEN: 3.5 cm hepatic segment 7 hypoattenuating lesion. SKELETAL STRUCTURES: No significant osseous abnormality. IMPRESSION: 1. No CT evidence for pulmonary embolism. 2. Findings suggesting interstitial edema. Depending ground glass opacities favored to represent atelectasis. 3. Nonspecific hypoattenuating lesion in the right hepatic lobe which is not characterized on this exam. Recommend dedicated CT multiphase liver protocol on a nonemergent basis. Signer Name: Clayton Green MD Signed: 05/19/2021 10:48 PM Workstation Name: [id number] Transcribed By: Dictated By: Clayton Green MD Electronically Authenticated By: Clayton Green MD Signed Date/Time: 05/19/212247 DD/ 44 Critical care attestation.: If time is entered above; I have spent that time in minutes in the direct care of this critically ill patient, excluding procedure time. ED Disposition Clinical Impression: SVT (supraventricular tachycardia), Obesity, Acute chest pain, Noncompliance Disposition: OP ADMIT IP TO THIS HOSP Is pt being admited?: Yes Does the pt Need Aspirin: No Condition: Good Heart Score - HEART Score History: Slightly suspicious EKG: Non-specific Age: 45-65 Risk factors: > 3 risk factors or hx of atherosclerotic disease Troponin: < normal limit HEART Score: 4 - EKG Read Time Time EKG Completed: 17:37 EKG Read Time: 17:38 - Critical Actions Critical Actions: 4-6 pts:12-16.6% risk of adverse cardiac event. Should be admitted
[2021-05-19] MEDS ORDERED: ASPIRIN 81 MG TAB CHEW PO ONE (18:28)
[2021-05-19] MEDS ORDERED: NITROGLYCERIN 0.4 MG TAB SUBL SL PRN ×2 (18:28→21:55)
[2021-05-19 18:57] LABS: Hematocrit 39.9 % (30.3-42.9); Hemoglobin 13.6 gm/dl (10.1-14.3); Mean Corpuscular HGB Conc 34 % (30-34); Mean Corpuscular Volume 93 fl (79-97); Platelet Count 230 K/mm3 (140-440); Red Blood Count 4.31 M/mm3 (3.65-5.03); Red Cell Distribution Width 14.2 % (13.2-15.2)
[2021-05-19 19:00] LABS: Blood Urea Nitrogen 11 mg/dL (7-17); Calcium 8.7 mg/dL (8.4-10.2); Hemolysis Index 8
[2021-05-19 19:01] LABS: BUN/Creatinine Ratio 16
[2021-05-19 19:25] LABS: INR 0.91 (0.87-1.13)
--- NOTE | 2021-05-19 19:31 | XRay Report ---
CHEST 2 VIEWS, 05/19/2021 INDICATION: Chest pain COMPARISON: Chest radiograph, 01/11/2021 FINDINGS: Support devices: None. Heart: The cardiac silhouette is normal in size. Lungs/pleura: The lungs are clear of focal airspace disease or significant pleural effusion. Additional findings: No significant acute abnormality. IMPRESSION: 1. No evidence of acute cardiopulmonary process. Signer Name: Camila Porter MD Signed: 05/19/2021 7:26 PM Workstation Name: [id number]
[2021-05-19] MEDS ORDERED: diphenhydrAMINE 50 MG/ML VIAL IV ONE (21:21)
[2021-05-19] MEDS ORDERED: ACETAMINOPHEN 325 MG TAB PO PRN ×2 (21:55)
[2021-05-19] MEDS ORDERED: ONDANSETRON 4 MG/2 ML INJ IV PRN (21:55)
[2021-05-19] MEDS ORDERED: MAGNESIUM HYDROXIDE (MOM) ORAL LIQD UDC PO PRN (22:00)
--- NOTE | 2021-05-19 22:12 | History and Physical Report ---
History of Present Illness Date of examination: 05/19/21 Date of admission: 05/19/21 21:23 Chief complaint: Chest Pain History of present illness: 55-year-old -A[place]ij[place] female with known history of hypothyroidism, paroxysmal SVT, obstructive sleep apnea, hyperlipidemia and hypertension presenting to the emergency room today complaining of chest pain and pal pitation. Chest pain is said to be on the left side of her chest radiating towards the left upper extremity and left shoulder. There is no known relieving or exacerbating factor. Patient denies any headache or dizziness, no nausea or vomiting, no diaphoresis, no fever or chills. Upon arrival of EMS patient was in SVT on the field and she was given 6 mg of adenosine which terminated the rhythm. Patient admits to not being quite compliant with her medications. Upon arrival in the emergency room patient was in sinus rhythm. Work-up in the emergency room, troponin were within normal limits. EKG shows left anterior fascicular block. Patient is being admitted for evaluation of chest pain and SVT. Past History Past Medical History: arthritis, hypertension, other (Depression, history of SVT,frozen" left shoulder, degenerative disk disease, hypothyroid Panic Attacks) Past Surgical History: (X4) Social history: no significant social history Family history: no significant family history Medications and Allergies Allergies Allergy/AdvReac Type Severity Reaction Status Date / Time tramadol AdvReac Unknown Verified 01/11/21 12:25 Home Medications Medication Instructions Recorded Confirmed Last Taken Type Cyclobenzaprine [Flexeril 10 MG 10 mg PO PRN PRN 07/03/19 05/19/21 07/02/19 History TAB] Ibuprofen [Motrin 800 MG tab] 800 mg PO Q8HR PRN 07/03/19 05/19/21 05/18/21 History Levothyroxine [Synthroid] 50 mcg PO QDAY 07/03/19 05/19/21 05/18/21 History Simvastatin 20 mg PO QDAY 07/03/19 05/19/21 05/18/21 History busPIRone [Buspar] 10 mg PO BID 07/03/19 05/19/21 1 Day Ago History ~05/18/21 hydrOXYzine PAMOATE [Vistaril] 50 mg PO QHS 07/03/19 05/19/21 1 Week Ago History ~05/12/21 lisinopriL [Zestril TAB] 40 mg PO QDAY 07/03/19 05/19/21 05/18/21 History Metoprolol [Lopressor TAB] 25 mg PO BID #60 tablet 07/04/19 05/19/21 05/18/21 Rx PROzac 50 mg PO DAILY 05/19/21 05/19/21 05/18/21 History SEROquel 100 mg PO DAILY 05/19/21 05/19/21 05/18/21 History Active Meds: Active Medications Acetaminophen (Acetaminophen 325 Mg Tab) 650 mg PO Q6H PRN PRN Reason: Pain, Mild (1-3) Acetaminophen (Acetaminophen 325 Mg Tab) 650 mg PO Q4H PRN PRN Reason: Pain MILD(1-3)/Fever >100.5/RUIZ Aspirin (Aspirin Ec 325 Mg Tab) 325 mg PO QDAY [facility] Magnesium Hydroxide (Magnesium Hydroxide (Mom) Oral Liqd Udc) 30 ml PO Q4H PRN PRN Reason: Constipation Nitroglycerin (Nitroglycerin 0.4 Mg Tab Subl) 0.4 mg SL Q5M PRN PRN Reason: Chest Pain Ondansetron HCl (Ondansetron 4 Mg/2 Ml Inj) 4 mg IV Q8H PRN PRN Reason: Nausea And Vomiting Sodium Chloride (Sodium Chloride 0.9% 10 Ml Flush Syringe) 10 ml IV PRN PRN PRN Reason: LINE FLUSH Sodium Chloride (Sodium Chloride 0.9% 10 Ml Flush Syringe) 10 ml IV BID [facility] Review of Systems Constitutional: no fever, no chills Ears, nose, mouth and throat: no nasal congestion, no sore throat Cardiovascular: chest pain, palpitations, no syncope Respiratory: no cough, no shortness of breath Gastrointestinal: no abdominal pain, no nausea, no vomiting, no diarrhea Genitourinary Female: no pelvic pain, no flank pain, no dysuria, no hematuria Musculoskeletal: no neck pain, no low back pain Integumentary: no rash, no pruritis Neurological: no headaches, no confusion Psychiatric: no anxiety, no depression Endocrine: no polyphagia, no polydipsia, no polyuria, no nocturia Exam - Constitutional Vitals: Temp Pulse Resp BP Pulse Ox 98.5 F 71 14 149/94 96 05/19/21 17:42 05/19/21 20:30 05/19/21 21:06 05/19/21 21:06 05/19/21 21:06 General appearance: Present: no acute distress, obese - EENT Eyes: Present: PERRL, EOM intact. Absent: scleral icterus ENT: hearing intact, clear oral mucosa, dentition normal - Neck Neck: Present: supple, normal ROM - Respiratory Respiratory effort: normal Respiratory: bilateral: CTA - Cardiovascular Rhythm: regular Heart Sounds: Present: S1 & S2. Absent: gallop, systolic murmur, diastolic murmur, rub, click - Extremities Extremities: no ischemia, pulses intact, pulses symmetrical, No edema, normal temperature, normal color, Full ROM Peripheral Pulses: within normal limits - Abdominal General gastrointestinal: Present: soft, non-tender, non-distended, normal bowel sounds. Absent: mass - Integumentary Integumentary: Present: clear, warm, dry, normal turgor. Absent: rash - Musculoskeletal Musculoskeletal: strength equal bilaterally - Psychiatric Psychiatric: appropriate mood/affect, intact judgment & insight, memory intact, cooperative - Neurologic Neurologic: CNII-XII intact, no focal deficits, moves all extremities HEART Score - HEART Score History: Moderately suspicious EKG: Non-specific Age: 45-65 Risk factors: > 3 risk factors or hx of atherosclerotic disease Troponin: Troponin T < 0.010 ng/mL (0.00-0.029) 05/19/21 21:10 Troponin: < normal limit HEART Score: 5 - Critical Actions Critical Actions: 4-6 pts:12-16.6% risk of adverse cardiac event. Should be admitted Results - Labs CBC & Chem 7: 05/19/21 23:38 05/19/21 23:38 Labs: Abnormal lab results 05/19/21 Range/Units 18:24 D-Dimer 253.29 H (0-234) ng/mlDDU Assessment and Plan - Patient Problems (1) Paroxysmal SVT (supraventricular tachycardia) Current Visit: No Status: Chronic Plan to address problem: Patient has known history of paroxysmal SVT. She has not been quite compliant with her medications. Patient currently in sinus rhythm. Consult placed to cardiology for evaluation and further recommendation. (2) Chest pain Current Visit: Yes Status: Acute Plan to address problem: Possibly secondary to the SVT. Patient will be monitored on telemetry. Meanwhile we will follow up on cardiac enzymes. Patient placed on daily aspirin, sublingual nitroglycerin and IV morphine as needed for chest pain. Will await further recommendations from cardiology. (3) Hypothyroidism Current Visit: No Status: Acute Plan to address problem: We will continue routine home medications and monitor TSH. (4) Noncompliance Current Visit: Yes Status: Acute Plan to address problem: Compliance with medications encouraged. (5) DVT prophylaxis Current Visit: No Status: Acute Plan to address problem: Patient placed on subcutaneous Lovenox. (6) Full code status Current Visit: Yes Status: Acute Plan to address problem: Patient is a full code.
--- NOTE | 2021-05-19 22:53 | Cat Scan Report ---
CT angio chest INDICATION / CLINICAL INFORMATION: Acute chest pain. Abnormal EKG.. TECHNIQUE: Axial CT images were obtained through the chest after injection of IV contrast. 3 plane MIP and/or 3D reconstructions were produced. All CT scans at this location are performed using CT dose reduction f or ALARA by means of automated exposure control. COMPARISON: None available. FINDINGS: PULMONARY ARTERIES: No pulmonary emboli. HEART: No significant abnormality. MEDIASTINUM / JEFF: No significant abnormality. LUNGS: Mild dependent groundglass opacities. Mild peribronchial and interlobular septal thickening. N o pleural effusion. No pneumothorax. ADDITIONAL FINDINGS: None. UPPER ABDOMEN: 3.5 cm hepatic segment 7 hypoattenuating lesion. SKELETAL STRUCTURES: No significant osseous abnormality. IMPRESSION: 1. No CT evidence for pulmonary embolism. 2. Findings suggesting interstitial edema. Depending ground glass opacities favored to represent atel ectasis. 3. Nonspecific hypoattenuating lesion in the right hepatic lobe which is not characterized on this ex am. Recommend dedicated CT multiphase liver protocol on a nonemergent basis. Signer Name: Clayton Green MD Signed: 05/19/2021 10:48 PM Workstation Name: [id number]
[2021-05-19] MEDS ORDERED: FUROSEMIDE 40 MG/4 ML INJ IV ONE (22:58)
[2021-05-20 00:14] LABS: Basophils % (Auto) 0.2 % (0.0-1.8); Eosinophils # (Auto) 0.3 K/mm3 (0.0-0.4); Eosinophils % (Auto) 3.6 % (0.0-4.3); Hematocrit 38.7 % (30.3-42.9); Hemoglobin 12.9 gm/dl (10.1-14.3); Lymphocytes # (Auto) 2.9 K/mm3 (1.2-5.4); Lymphocytes % (Auto) 39.9 % (13.4-35.0); Mean Corpuscular HGB Conc 34 % (30-34); Mean Corpuscular Volume 91 fl (79-97); Monocytes # (Auto) 0.4 K/mm3 (0.0-0.8); Monocytes % (Auto) 5.1 % (0.0-7.3); Platelet Count 232 K/mm3 (140-440); Red Blood Count 4.23 M/mm3 (3.65-5.03); Red Cell Distribution Width 14.4 % (13.2-15.2)
[2021-05-20 00:40] LABS: Blood Urea Nitrogen 11 mg/dL (7-17); Calcium 8.4 mg/dL (8.4-10.2); Hemolysis Index 3
[2021-05-20 00:44] LABS: BUN/Creatinine Ratio 18
[2021-05-20 06:30] LABS: Basophils % (Auto) 0.4 % (0.0-1.8); Eosinophils # (Auto) 0.3 K/mm3 (0.0-0.4); Hematocrit 40.3 % (30.3-42.9); Hemoglobin 13.4 gm/dl (10.1-14.3); Lymphocytes # (Auto) 2.9 K/mm3 (1.2-5.4); Lymphocytes % (Auto) 40.6 % (13.4-35.0); Mean Corpuscular HGB Conc 33 % (30-34); Mean Corpuscular Volume 92 fl (79-97); Monocytes # (Auto) 0.5 K/mm3 (0.0-0.8); Monocytes % (Auto) 7.7 % (0.0-7.3); Platelet Count 250 K/mm3 (140-440); Red Blood Count 4.41 M/mm3 (3.65-5.03); Red Cell Distribution Width 14.2 % (13.2-15.2)
[2021-05-20 06:39] LABS: INR 0.9 (0.87-1.13)
[2021-05-20 06:43] LABS: Blood Urea Nitrogen 10 mg/dL (7-17); Calcium 8.6 mg/dL (8.4-10.2); Hemolysis Index 5
[2021-05-20 06:44] LABS: BUN/Creatinine Ratio 17
[2021-05-20] MEDS ORDERED: REGADENOSON 0.4 MG/5 ML INJ IV ONE (08:22)
[2021-05-20] MEDS ORDERED: ASPIRIN EC 325 MG TAB PO SCH (10:00)
--- NOTE | 2021-05-20 11:40 | Nuclear Medicine Report ---
APPROVED REPORT Exam: Nuclear Stress Test Indication: Chest pain BMI: 0 Stress Test Details HR Max Heart Rate (APMHR): 164 bpm Target HR (85% APMHR): 139 bpm BP ECG Resting ECG: Sinus Rhythm,non specific ST chnages noted in inferolateral leads. Stress ECG: Sinus Rhythm ST Change: slight worsening of baseline EKG changes noted. Arrhythmia: None Recovery ECG: Sinus Rhythm Recovery ST Change: No change from baseline. Recovery Arrhythmia: None NM EXAM: Myocardial Perfusion REST/STRESS Imaging Protocol: Rest Tc-99m/Stress Tc-99m 1 day Resting Data Rest SPECT myocardial perfusion imaging was performed in supine position 45 minutes following the intravenous injection of 10 mCi of Tc-99m Myoview. Time of rest injection: 0645 Pharmacologic Stress Pharmacologic stress test was performed by injecting Regadenoson 0.4 mg IV push followed by the intravenous injection of 28 mCi of Tc-99m Myoview. Time of stress injection: 1009 Gated Stress SPECT was performed 30 minutes after stress injection. The images were gated to evaluate regional wall motion and calculate left ventricular ejection fraction. Study Quality Study: excellent Lung Uptake: Normal Study Data TID = 1.16. Perfusion Wall Motion The rest and stress images show normal left ventricular wall motion.Calculated LVEF of 74% noted post vasodilation with normal EDV and ESV . Nuclear Conclusion ECG Findings: negative for ischemia Clinical Findings: negative for ischemia Nuclear Findings: negative for ischemia Exercise Capacity: not assessed Left Ventricular Function: normal Risk Study: low Normal study. No scintigraphic evidence for myocardial ischemia or scar.
--- NOTE | 2021-05-20 14:50 | Discharge Summary ---
Providers - Providers Date of Admission: 05/19/21 21:23 Date of discharge: 05/20/21 Attending physician: VENKAT DURBIN 05/19/21 Consult to Cardiac Rehabilitation [CONS] Routine Reason For Exam: Phase I 05/19/21 21:55 Consult to Cardiology [CONS] Routine Consulting Provider: GAVIOTA REVELES Reason For Exam: chest pain,SVT Primary care physician: APPRAISER ART Hospitalization Condition: Good Pertinent studies: CXR, Chest CTA, MPI stress test, 2D echocardiogram Hospital course: 55-year-old -Fijian female with known history of hypothyroidism, paroxysmal SVT, obstructive sleep apnea, hyperlipidemia and hypertension presenting to the emergency room with complaining of chest pain and palpitation. Chest pain is said to be on the left side of her chest radiating towards the left upper extremity and left shoulder. Upon arrival of EMS patient was in SVT on the field and she was given 6 mg of adenosine which terminated the rhythm. Upon arrival in the emergency room patient was in sinus rhythm. Work-up in the emergency room, troponin were within normal limits. EKG shows left anterior fas cicular block. Patient was admitted for evaluation of chest pain and SVT. chest x-ray showed no infiltrates, CTA chest showed no acute PE. Patient was admitted and underwent myocardial stress test which was normal. Off note, pt reported a history of multiple episodes of SVT since September 2017. Patient was then discharged home in stable condition with outpatient follow-up. Patient was recommended for medical compliance and outpatient follow-up with programming instructor. Disposition: TO HOME OR SELFCARE Final Discharge Diagnosis (Prints w/discharge instructions): --Paroxysmal SVT. --Atypical chest pain, likely due to GERD. --Hypothyroidism. --Noncompliance Time spent for discharge: 34 minutes Core Measure Documentation - Palliative Care Palliative Care/ Comfort Measures: Not Applicable - Core Measures Any of the following diagnoses?: none Exam - Physical Exam Narrative exam: General appearance: Present: no acute distress, obese - EENT Eyes: Present: PERRL, EOM intact. Absent: scleral icterus ENT: hearing intact, clear oral mucosa, dentition normal - Neck Neck: Present: supple, normal ROM - Respiratory Respiratory effort: normal Respiratory: bilateral: CTA - Cardiovascular Rhythm: regular Heart Sounds: Present: S1 & S2. Absent: gallop, systolic murmur, diastolic murmur, rub, click - Extremities Extremities: no ischemia, pulses intact, pulses symmetrical, No edema, normal temperature, normal color, Full ROM Peripheral Pulses: within normal limits - Abdominal General gastrointestinal: Present: soft, non-tender, non-distended, normal bowel sounds. Absent: mass - Integumentary Integumentary: Present: clear, warm, dry, normal turgor. Absent: rash - Musculoskeletal Musculoskeletal: strength equal bilaterally - Psychiatric Psychiatric: appropriate mood/affect, intact judgment & insight, memory intact, cooperative - Neurologic Neurologic: CNII-XII intact, no focal deficits, moves all extremities - Constitutional Vitals: Temp Pulse Resp BP Pulse Ox 98.9 F 91 H 18 128/85 91 05/20/21 12:26 05/20/21 12:26 05/20/21 12:26 05/20/21 12:26 05/20/21 12:26 Plan Activity: advance as tolerated Weight Bearing Status: Weight Bear as Tolerated Diet: low fat, low salt Additional Instructions: Patient should follow-up with Dr Melton, [facility] computer network specialist within 1 to 2 weeks of discharge (schedule pending). #[id number] Follow up with: LEODAN COPPOLA MD [Primary Care Provider] - 3-5 Days SPENCER MELTON MD [Staff Physician] - 7 Days
--- NOTE | 2021-05-20 15:11 | Consultation ---
History of Present Illness Consult date: 05/20/21 Requesting physician: MAJOR GARSIA Consult reason: chest pain History of present illness: This patient is a 55-year-old female with a significant history of paroxysmal SVT, hypothyroidism, CYNTHIA, hypertension and hyperlipidemia. She has been previously seen by Dr Reeves in our office and evaluated by Dr. Sheikh licha ctrophysiology. Patient presents to [facility] by EMS after symptomatic SVT treated in the field with adenosine with subsequent conversion to sinus rhythm. Patient complains of palpitation with concurrent chest pain described as 7 out of 10 and sharp, intermittent occurring and frequent episodes for approximately the last 9 months for half day at a time. Patient has been previously evaluated for same paroxysmal SVT and recommended for ablation. Patient states she was unable to obtain ablation due to complications arising from Covid pandemic. Patient is currently chest pain-free with no cardiac complaints. She denies any weakness, dizziness, shortness of breath, abdominal pain, N/V/D, recent illness or known exposures. She would like to be scheduled with outpatient cardiology follow-up to pursue ablation. Echocardiogram (2017): EF 50 to 55%. Lexiscan (2017): Negative for reversible ischemia Past History Past Medical History: arthritis, hypertension, other (See HPI) Past Surgical History: (X4) Social history: no significant social history Family history: no significant family history Medications and Allergies Allergies Allergy/AdvReac Type Severity Reaction Status Date / Time tramadol AdvReac Unknown Verified 01/11/21 12:25 Home Medications Medication Instructions Recorded Confirmed Last Taken Type Cyclobenzaprine [Flexeril 10 MG 10 mg PO PRN PRN 07/03/19 05/19/21 07/02/19 History TAB] Levothyroxine [Synthroid] 50 mcg PO QDAY 07/03/19 05/19/21 05/18/21 History Simvastatin 20 mg PO QDAY 07/03/19 05/19/21 05/18/21 History busPIRone [Buspar] 10 mg PO BID 07/03/19 05/19/21 1 Day Ago History ~05/18/21 hydrOXYzine PAMOATE [Vistaril] 50 mg PO QHS 07/03/19 05/19/21 1 Week Ago History ~05/12/21 Metoprolol [Lopressor TAB] 25 mg PO BID #60 tablet 07/04/19 05/19/21 05/18/21 Rx PROzac 50 mg PO DAILY 05/19/21 05/19/21 05/18/21 History SEROquel 100 mg PO DAILY 05/19/21 05/19/21 05/18/21 History Active Meds: Active Medications Acetaminophen (Acetaminophen 325 Mg Tab) 650 mg PO Q4H PRN PRN Reason: Pain MILD(1-3)/Fever >100.5/RUIZ Aspirin (Aspirin Ec 325 Mg Tab) 325 mg PO QDAY [facility] Last Admin: 05/20/21 11:50 Dose: 325 mg Documented by: Magnesium Hydroxide (Magnesium Hydroxide (Mom) Oral Liqd Udc) 30 ml PO Q4H PRN PRN Reason: Constipation Nitroglycerin (Nitroglycerin 0.4 Mg Tab Subl) 0.4 mg SL Q5M PRN PRN Reason: Chest Pain Ondansetron HCl (Ondansetron 4 Mg/2 Ml Inj) 4 mg IV Q8H PRN PRN Reason: Nausea And Vomiting Sodium Chloride (Sodium Chloride 0.9% 10 Ml Flush Syringe) 10 ml IV PRN PRN PRN Reason: LINE FLUSH Sodium Chloride (Sodium Chloride 0.9% 10 Ml Flush Syringe) 10 ml IV BID [facility] Last Admin: 05/20/21 11:50 Dose: 10 ml Documented by: Review of Systems Constitutional: no weight loss, no weight gain, no fever, no chills, no sweats, no night sweats Ears, nose, mouth and throat: no ear pain, no ear discharge, no nose pain, no nasal congestion, no nasal discharge Cardiovascular: chest pain, palpitations, no orthopnea, no rapid/irregular heart beat, no edema, no syncope, no lightheadedness, no shortness of breath, no dyspnea on exertion, no paroxysmal nocturnal dyspnea, no claudication, no high blood pressure, no decreased exercise tolerance Respiratory: no cough, no cough with sputum, no shortness of breath, no dyspnea on exertion Gastrointestinal: no abdominal pain, no nausea, no vomiting, no diarrhea Genitourinary Female: no flank pain Musculoskeletal: no neck stiffness, no neck pain, no shooting arm pain, no arm numbness/tingling, no low back pain, no shooting leg pain Integumentary: no rash, no pruritis, no redness, no sores, no wounds Neurological: no head injury, no paralysis, no weakness, no parathesias, no numbness, no tingling, no seizures, no syncope Psychiatric: anxiety Endocrine: no cold intolerance, no heat intolerance Hematologic/Lymphatic: no easy bruising, no easy bleeding Allergic/Immunologic: no urticaria Physical Examination Last Vital Signs Temp 98.9 F 05/20/21 12:26 Pulse 91 H 05/20/21 12:26 Resp 18 05/20/21 12:26 BP 128/85 05/20/21 12:26 Pulse Ox 91 05/20/21 12:26 General appearance: no acute distress HEENT: Positive: PERRL, Normocephaly, Mucus Membranes Moist Neck: Positive: neck supple, trachea midline Cardiac: Positive: Reg Rate and Rhythm, S1/S2 Lungs: Positive: Normal Exam, Normal Breath Sounds Neuro: Positive: Grossly Intact Abdomen: Positive: Unremarkable, Soft Skin: Negative: Rash, Wound Musculoskeletal: No Pain Extremities: Present: upper extr. pulses, lower extr. pulses. Absent: edema Results 05/20/21 05:35 05/20/21 05:35 Coagulation 05/19/21 05/20/21 Range/Units 18:24 05:35 PT 12.9 12.7 (12.2-14.9) Sec. INR 0.91 0.90 (0.87-1.13) CBC 05/19/21 05/19/21 05/20/21 Range/Units 18:24 23:38 05:35 WBC 7.2 7.4 7.1 (4.5-11.0) K/mm3 RBC 4.31 4.23 4.41 (3.65-5.03) M/mm3 Hgb 13.6 12.9 13.4 (10.1-14.3) gm/dl Hct 39.9 38.7 40.3 (30.3-42.9) % Plt Count 230 232 250 (140-440) K/mm3 Lymph # (Auto) 2.9 2.9 (1.2-5.4) K/mm3 [place] # (Auto) 0.4 0.5 (0.0-0.8) K/mm3 Eos # (Auto) 0.3 0.3 (0.0-0.4) K/mm3 Baso # (Auto) 0.0 0.0 (0.0-0.1) K/mm3 Comprehensive Metabolic Panel 05/19/21 05/19/21 05/20/21 Range/Units 18:24 23:38 05:35 Sodium 140 142 141 (137-145) mmol/L Potassium 3.9 3.6 3.6 (3.6-5.0) mmol/L Chloride 106.9 107.8 H 104.4 (98-107) mmol/L Carbon Dioxide 24 23 28 (22-30) mmol/L BUN 11 11 10 (7-17) mg/dL Creatinine 0.7 0.6 0.6 (0.6-1.2) mg/dL Glucose 85 129 H 89 (65-100) mg/dL Calcium 8.7 8.4 8.6 (8.4-10.2) mg/dL - Imaging and Cardiology Echo: pending, report reviewed EKG: report reviewed, image reviewed EKG interpretations - Telemetry EKG Rhythm: Sinus Rhythm - EKG Sinus rhythms and dysrhythmias: sinus rhythm Assessment and Plan Paroxysmal SVT * Patient was converted with adenosine. Review of telemetry shows sinus rhythm 79 with no further events. * Patient has known history of PSVT and has previously been recommended for ablation. Patient states she is prescribed metoprolol for rate control but is inconsistent and frequently forgets to take her medications. Chest pain * Patient is currently chest pain-free without cardiac symptoms. Twelve-lead reviewed shows no acute ischemic changes. Troponins are negative x3. AMI is ruled out * Lexiscan MPI stress test (05/20/2021): Is negative for reversible ischemia * Echocardiogram is pending read,preliminary shows normal EF. Previous echocardiogram from 2018 shows EF 50 to 55% with no cardiomyopathy. Patient is currently in stable cardiac status. Patient may discharge from cardiology standpoint. Will follow on as-needed basis. Patient should follow-up with Dr Reeves, [facility] heart specialists in our [place] office on 06/09/2021 at 2:30 PM. #[phone] This patient was seen in conjunction with Dr Reeves who agrees with this assessment and plan of care - Patient Problems (1) Chest pain Current Visit: Yes Status: Resolved (2) Hypothyroidism Current Visit: Yes Status: Chronic (3) Paroxysmal SVT (supraventricular tachycardia) Current Visit: Yes Status: Chronic
[2021-05-20 17:19] VITALS: BP 119/74
--- NOTE | 2021-05-21 10:27 | Electrocardiograph Report ---
[facility] Test Date: 2021-05-19 Test Time: 17:37:37 Pat Name: ALYX BOLAÑOS Department: Room: A476 1 Gender: F Role Player: ALISSA : 1965 Requested By: ALFRED SCHAEFER Order Number: [id number] Reading MD: Laury Epstein Measurements Intervals [place] Rate: 90 P: 42 NH: 151 QRS: -35 QRSD: 99 T: 3 QT: 356 QTc: 437 Interpretive Statements Sinus rhythm Left axis deviation No previous ECG available for comparison Electronically Signed On 05-21-2021 10:27:07 EDT by Laury Epstein
--- NOTE | 2021-05-21 10:29 | Electrocardiograph Report ---
[facility] Test Date: 2021-05-19 Test Time: 21:34:03 Pat Name: ALYX BOLAÑOS Department: Room: A476 1 Gender: F Weather Observer: RAMSEY : 1965 Requested By: ALFRED SCHAEFER Order Number: [id number] Reading MD: Laury Epstein Measurements Intervals [place] Rate: 72 P: 40 NV: 140 QRS: 0 QRSD: 114 T: 1 QT: 413 QTc: 453 Interpretive Statements Sinus rhythm Incomplete right bundle branch block Low voltage QRS Nonspecific ST and T wave changes No previous ECG available for comparison Electronically Signed On 05-21-2021 10:29:12 EDT by Laury Epstein
== END 2021-05-20 17:19 | disposition home or self-care (01) ==
LOC: ED 17:04 → 4A 21:23
PROVIDERS: ADMIT Internal Medicine Geriatric Medicine; ATTEND Internal Medicine
DX: I47.1 Supraventricular tachycardia (principal); R07.89 Other chest pain; E03.9 Hypothyroidism, unspecified; E66.9 Obesity, unspecified; I10 Essential (primary) hypertension; M19.90 Unspecified osteoarthritis, unspecified site; F32.9 Major depressive disorder, single episode, unspecified; Z79.899 Other long term (current) drug therapy; Z91.19 Patient's noncompliance with other medical treatment and regimen; Z98.890 Other specified postprocedural states; Z98.891 History of uterine scar from previous surgery; Z79.82 Long term (current) use of aspirin; Z68.38 Body mass index [BMI] 38.0-38.9, adult
CPT/HCPCS: 36415; 71046; 71275; 78452; 80048; 82550; 83735; 84439; 84443; 84484; 85025; 85027; 85379; 85610; 93005; 93017; 93306; 96374; 96375; 99285; A9502; G0378; J1200; J1885; J1940; J2785; J7040; Q9967

== ENCOUNTER 2021-06-20 19:44 | Emergency (ER) | payer MEDICAID | END 2021-06-20 21:10 | LOC: ED 19:44 | DX: F41.8 Other specified anxiety disorders (principal); Z53.21 Procedure and treatment not carried out due to patient leaving prior to being seen by health care provider ==

== ENCOUNTER 2021-09-10 12:35 | Emergency (ER) | payer MEDICAID ==
--- NOTE | 2021-09-10 13:24 | Emergency Department Report ---
HPI - General Chief Complaint: Medical Clearance Time Seen by Provider: 09/10/21 12:49 - HPI HPI: This is a 56-year-old female who presents to the emergency department via EMS from home with a complaint of an episode of SVT just prior to presentation. The patient says that she developed some chest pressure, lightheadedness, generalized weakness and says that this felt similar to previous episodes of SVT that she has had. She converted back to a sinus rhythm in route without any adenosine or medication given. The patient has a history of this paroxysmal SVT, hypothyroidism, CYNTHIA, hypertension and hyperlipidemia. Patient follows with [facility] cardiology and has seen Dr. Sheikh, electrophysiology, in the past. The patient is on metoprolol for rate control and says she is compliant with her medications. No recent travel or sick contacts at home. ED Past Medical Hx - Past Medical History Previous Medical History?: Yes Hx Hypertension: Yes Hx Congestive Heart Failure: No Hx Diabetes: No Hx Arthritis: Yes Hx Psychiatric Treatment: Yes (depression bi polar, anxiety) Hx Asthma: No Hx COPD: Yes Additional medical history: SVT, "frozen" left shoulder, degenerative disk disease, hypothyroid Panic Attacks - Surgical History Past Surgical History?: Yes Additional Surgical History: 4 - Social History Smoking Status: Never Smoker Substance Use Type: None - Medications Home Medications: Home Medications Medication Instructions Recorded Confirmed Last Taken Type Cyclobenzaprine [Flexeril 10 MG 10 mg PO PRN PRN 07/03/19 05/19/21 07/02/19 History TAB] Levothyroxine [Synthroid] 50 mcg PO QDAY 07/03/19 05/19/21 05/18/21 History Simvastatin 20 mg PO QDAY 07/03/19 05/19/21 05/18/21 History busPIRone [Buspar] 10 mg PO BID 07/03/19 05/19/21 1 Day Ago History ~05/18/21 hydrOXYzine PAMOATE [Vistaril] 50 mg PO QHS 07/03/19 05/19/21 1 Week Ago History ~05/12/21 Metoprolol [Lopressor TAB] 25 mg PO BID #60 tablet 07/04/19 05/19/21 05/18/21 Rx PROzac 50 mg PO DAILY 05/19/21 05/19/21 05/18/21 History SEROquel 100 mg PO DAILY 05/19/21 05/19/21 05/18/21 History ED Review of Systems ROS: Stated complaint: SVT/WEAKNESS Other details as noted in HPI Comment: All other systems reviewed and negative Constitutional: denies: chills, fever Eyes: denies: eye pain, vision change ENT: denies: ear pain, throat pain Respiratory: denies: cough, shortness of breath Cardiovascular: chest pain, palpitations Gastrointestinal: denies: abdominal pain, vomiting Genitourinary: denies: dysuria, discharge Musculoskeletal: denies: back pain, arthralgia Skin: denies: rash, lesions Neurological: denies: headache, numbness Physical Exam - Physical Exam Vital Signs: Vital Signs 09/10/21 09/10/21 12:39 13:06 Temperature 98.9 F Pulse Rate 95 H Respiratory 18 Rate Blood Pressure 152/106 [Left] O2 Sat by Pulse 98 96 Oximetry Physical Exam: GENERAL: The patient is well-developed well-nourished. HENT: Normocephalic. Atraumatic. Patient has moist mucous membranes. EYES: Extraocular motions are intact. NECK: Supple. Trachea is midline. CHEST/LUNGS: Clear to auscultation. There is no respiratory distress noted. HEART/CARDIOVASCULAR: Regular. There is no tachycardia. There is no murmur. ABDOMEN: Abdomen is soft, nontender. Patient has normal bowel sounds SKIN: Skin is warm and dry. NEURO: The patient is awake, alert, and oriented. The patient is cooperative. The patient has no focal neurologic deficits. Normal speech. MUSCULOSKELETAL: There is no tenderness or deformity. There is no limitation range of motion. ED Course Vital Signs 09/10/21 09/10/21 12:39 13:06 Temperature 98.9 F Pulse Rate 95 H Respiratory 18 Rate Blood Pressure 152/106 [Left] O2 Sat by Pulse 98 96 Oximetry - Consultations Consultation #1: 09/10/21 15:58 I spoke with JAKE Shirley working with Dr. Mcfarlane, [facility] cardiology. He came down to the emergency department and evaluated the patient and his full co nsultation and recommendations will be placed in the chart. The patient will be discharged home and they are arranging for an outpatient follow-up appointment with Dr. Agueda Sheikh for next week. ED Medical Decision Making - Lab Data Result diagrams: 09/10/21 13:03 09/10/21 13:03 Lab Results 09/10/21 09/10/21 09/10/21 Range/Units 13:03 13:03 13:03 WBC 6.3 (4.5-11.0) K/mm3 RBC 4.76 (3.65-5.03) M/mm3 Hgb 14.5 H (10.1-14.3) gm/dl Hct 43.7 H (30.3-42.9) % MCV 92 (79-97) fl MCH 30 (28-32) pg MCHC 33 (30-34) % RDW 14.2 (13.2-15.2) % Plt Count 239 (140-440) K/mm3 Lymph % (Auto) 33.5 (13.4-35.0) % [place] % (Auto) 8.0 H (0.0-7.3) % Eos % (Auto) 4.9 H (0.0-4.3) % Baso % (Auto) 0.5 (0.0-1.8) % Lymph # (Auto) 2.1 (1.2-5.4) K/mm3 [place] # (Auto) 0.5 (0.0-0.8) K/mm3 Eos # (Auto) 0.3 (0.0-0.4) K/mm3 Baso # (Auto) 0.0 (0.0-0.1) K/mm3 Seg Neutrophils % 53.1 (40.0-70.0) % Seg Neutrophils # 3.4 (1.8-7.7) K/mm3 Sodium 143 (137-145) mmol/L Potassium 4.0 (3.6-5.0) mmol/L Chloride 107.1 H (98-107) mmol/L Carbon Dioxide 25 (22-30) mmol/L Anion Gap 15 mmol/L BUN 8 (7-17) mg/dL Creatinine 0.6 (0.6-1.2) mg/dL Estimated GFR > 60 ml/min BUN/Creatinine Ratio 13 % Glucose 102 H (65-100) mg/dL Calcium 8.8 (8.4-10.2) mg/dL Total Bilirubin 0.60 (0.1-1.2) mg/dL AST 19 (5-40) units/L ALT 14 (7-56) units/L Alkaline Phosphatase 120 (35-129) units/L Troponin T < 0.010 (0.00-0.029) ng/mL Total Protein 7.8 (6.3-8.2) g/dL Albumin 3.7 L (3.9-5) g/dL Albumin/Globulin Ratio 0.9 % TSH 5.780 H (0.270-4.200) mlU/mL - EKG Data -: EKG Interpreted by Me EKG shows normal: sinus rhythm, axis (Left axis deviation), intervals, QRS complexes (Q waves to the inferior and septal leads), ST-T waves Rate: normal - EKG Data When compared to previous EKG there are: no significant change Interpretation: unchanged when compared t (05/19/21) - Radiology Data Radiology results: image reviewed interpreted by me: Chest x-ray does not show any acute process. There are no pleural effusions, obvious pneumonia and there is no pneumothorax. No widened mediastinum. - Medical Decision Making This patient presented to the emergency department after she had some atypical chest discomfort and palpitations and supposedly had SVT in route with EMS. The patient spontaneously cardioverted by the time of arrival. EKG does not show any morphology consistent with ST elevation myocardial infarction. Patient's labs have been mostly unremarkable except for some mild hypothyroidism that is most likely not the cause of her SVT. The patient was seen in the emergency department by the cardiology team who feels that she is safe for discharge with outpatient follow-up with Dr. Sheikh, cardiology and executive secretary social welfare. She will continue with her normal home medications and will return to the emergency department with any return of palpitations, arrhythmia, or any other acute process. Critical Care Time: No Critical care attestation.: If time is entered above; I have spent that time in minutes in the direct care of this critically ill patient, excluding procedure time. ED Disposition Clinical Impression: Paroxysmal SVT (supraventricular tachycardia) Disposition: 01 HOME / SELF CARE / HOMELESS Is pt being admited?: No Condition: Stable Instructions: Supraventricular Tachycardia, Adult Additional Instructions: You are getting set up for an appointment next week with Dr. Agueda Sheikh. Please keep this appointment. Take all medications as previously prescribed. Return to the emergency department with any worsening of your symptoms, new or concerning symptoms not addressed during this current emergency department visit, or with any acute distress. Referrals: ORLANDO SHEIKH MD [Staff Physician] - 3-5 Days Time of Disposition: 15:59
[2021-09-10 13:25] LABS: Basophils % (Auto) 0.5 % (0.0-1.8); Eosinophils # (Auto) 0.3 K/mm3 (0.0-0.4); Eosinophils % (Auto) 4.9 % (0.0-4.3); Hematocrit 43.7 % (30.3-42.9); Hemoglobin 14.5 gm/dl (10.1-14.3); Lymphocytes # (Auto) 2.1 K/mm3 (1.2-5.4); Lymphocytes % (Auto) 33.5 % (13.4-35.0); Mean Corpuscular HGB Conc 33 % (30-34); Mean Corpuscular Volume 92 fl (79-97); Monocytes # (Auto) 0.5 K/mm3 (0.0-0.8); Platelet Count 239 K/mm3 (140-440); Red Blood Count 4.76 M/mm3 (3.65-5.03); Red Cell Distribution Width 14.2 % (13.2-15.2)
[2021-09-10 13:55] LABS: Alanine Aminotransferase 14 units/L (7-56); Albumin 3.7 g/dL (3.9-5); Blood Urea Nitrogen 8 mg/dL (7-17); Calcium 8.8 mg/dL (8.4-10.2); Hemolysis Index 7
[2021-09-10 13:57] LABS: BUN/Creatinine Ratio 13
--- NOTE | 2021-09-10 14:12 | XRay Report ---
CHEST 1 VIEW 09/10/2021 1:02 PM INDICATION / CLINICAL INFORMATION: CP. COMPARISON: 05/19/2021 FINDINGS: SUPPORT DEVICES: None. HEART / MEDIASTINUM: No significant abnormality. LUNGS / PLEURA: No significant pulmonary or pleural abnormality. No pneumothorax. ADDITIONAL FINDINGS: No significant additional findings. IMPRESSION: 1. No acute findings. Signer Name: Can Katz MD Signed: 09/10/2021 2:08 PM Workstation Name: [id number]
[2021-09-10 15:34] VITALS: BP 129/78
--- NOTE | 2021-09-10 17:15 | Consultation ---
History of Present Illness Consult date: 09/10/21 Requesting physician: LARRY PISANO Consult reason: other (SVT) History of present illness: This patient is a 55-year-old female with a significant history of paroxysmal SVT, hypothyroidism, CYNTHIA, hypertension and hyperlipidemia who presents with a complaint of SVT this morning. She has been previously seen by Dr Reeves in our office and evaluated by Dr. Sheikh electrophysiology. Patient presents to [facility] by EMS after symptomatic SVT which resolved spontaneously without medical treatment to sinus rhythm. Patient complains of chest pressure, lightheadedness, generalized weakness and says that this felt similar to previous episodes of SVT that she has had in the past. Patient was previously seen in May 2021 for similar complaints of SVT. Patient has been previously evaluated for same paroxysmal SVT and recommended for ablation however she reported that she was going away in June and returning in July. She was supposed to follow up with Dr. Sheikh regarding an ablation upon the return from her trip however she did not follow-up. Cardiology consulted for SVT Past History Past Medical History: hypertension, hyperlipidemia, other (PSVT,hypothyroidism) Past Surgical History: No surgical history Social history: no significant social history Family history: diabetes, hypertension Medications and Allergies Allergies Allergy/AdvReac Type Severity Reaction Status Date / Time tramadol AdvReac Unknown Verified 01/11/21 12:25 Home Medications Medication Instructions Recorded Confirmed Last Taken Type Cyclobenzaprine [Flexeril 10 MG 10 mg PO PRN PRN 07/03/19 05/19/21 07/02/19 History TAB] Levothyroxine [Synthroid] 50 mcg PO QDAY 07/03/19 05/19/21 05/18/21 History Simvastatin 20 mg PO QDAY 07/03/19 05/19/21 05/18/21 History busPIRone [Buspar] 10 mg PO BID 07/03/19 05/19/21 1 Day Ago History ~05/18/21 hydrOXYzine PAMOATE [Vistaril] 50 mg PO QHS 07/03/19 05/19/21 1 Week Ago History ~05/12/21 Metoprolol [Lopressor TAB] 25 mg PO BID #60 tablet 07/04/19 05/19/21 05/18/21 Rx PROzac 50 mg PO DAILY 05/19/21 05/19/21 05/18/21 History SEROquel 100 mg PO DAILY 05/19/21 05/19/21 05/18/21 History Review of Systems Constitutional: no fever, no chills, no sweats Cardiovascular: palpitations, rapid/irregular heart beat, lightheadedness, shortness of breath Respiratory: shortness of breath, no cough with sputum, no excessive sputum Gastrointestinal: no nausea, no vomiting, no diarrhea Musculoskeletal: no neck stiffness, no neck pain, no shooting arm pain Integumentary: no rash, no pruritis, no redness Neurological: no transient paralysis, no paralysis, no weakness Psychiatric: no anxiety, no memory loss, no change in sleep habits Endocrine: no cold intolerance, no heat intolerance Physical Examination Vital Signs Temp Pulse Resp BP Pulse Ox 98.9 F 95 H 18 152/106 98 09/10/21 12:39 09/10/21 12:39 09/10/21 12:39 09/10/21 12:39 09/10/21 12:39 General appearance: no acute distress HEENT: Positive: PERRL Neck: Positive: trachea midline Cardiac: Positive: Reg Rate and Rhythm Lungs: Positive: clear to auscultation, Normal Breath Sounds Neuro: Positive: Grossly Intact Abdomen: Positive: Soft, Active Bowel Sounds Skin: Negative: Rash, Suspicious Lesions, Ulceration Extremities: Present: upper extr. pulses, lower extr. pulses. Absent: edema Results 09/10/21 13:03 09/10/21 13:03 Cardiac Enzymes 09/10/21 09/10/21 09/10/21 Range/Units 13:03 13:03 13:03 WBC 6.3 (4.5-11.0) K/mm3 RBC 4.76 (3.65-5.03) M/mm3 Hgb 14.5 H (10.1-14.3) gm/dl Hct 43.7 H (30.3-42.9) % MCV 92 (79-97) fl MCH 30 (28-32) pg MCHC 33 (30-34) % RDW 14.2 (13.2-15.2) % Plt Count 239 (140-440) K/mm3 Lymph % (Auto) 33.5 (13.4-35.0) % [place] % (Auto) 8.0 H (0.0-7.3) % Eos % (Auto) 4.9 H (0.0-4.3) % Baso % (Auto) 0.5 (0.0-1.8) % Lymph # (Auto) 2.1 (1.2-5.4) K/mm3 [place] # (Auto) 0.5 (0.0-0.8) K/mm3 Eos # (Auto) 0.3 (0.0-0.4) K/mm3 Baso # (Auto) 0.0 (0.0-0.1) K/mm3 Seg Neutrophils % 53.1 (40.0-70.0) % Seg Neutrophils # 3.4 (1.8-7.7) K/mm3 Sodium 143 (137-145) mmol/L Potassium 4.0 (3.6-5.0) mmol/L Chloride 107.1 H (98-107) mmol/L Carbon Dioxide 25 (22-30) mmol/L Anion Gap 15 mmol/L BUN 8 (7-17) mg/dL Creatinine 0.6 (0.6-1.2) mg/dL Estimated GFR > 60 ml/min BUN/Creatinine Ratio 13 % Glucose 102 H (65-100) mg/dL Calcium 8.8 (8.4-10.2) mg/dL Magnesium (1.7-2.3) mg/dL Total Bilirubin 0.60 (0.1-1.2) mg/dL AST 19 (5-40) units/L ALT 14 (7-56) units/L Alkaline Phosphatase 120 (35-129) units/L Troponin T < 0.010 (0.00-0.029) ng/mL Total Protein 7.8 (6.3-8.2) g/dL Albumin 3.7 L (3.9-5) g/dL Albumin/Globulin Ratio 0.9 % TSH 5.780 H (0.270-4.200) mlU/mL 10/29/21 Range/Units Unknown WBC (4.5-11.0) K/mm3 RBC (3.65-5.03) M/mm3 Hgb (10.1-14.3) gm/dl Hct (30.3-42.9) % MCV (79-97) fl MCH (28-32) pg MCHC (30-34) % RDW (13.2-15.2) % Plt Count (140-440) K/mm3 Lymph % (Auto) (13.4-35.0) % [place] % (Auto) (0.0-7.3) % Eos % (Auto) (0.0-4.3) % Baso % (Auto) (0.0-1.8) % Lymph # (Auto) (1.2-5.4) K/mm3 [place] # (Auto) (0.0-0.8) K/mm3 Eos # (Auto) (0.0-0.4) K/mm3 Baso # (Auto) (0.0-0.1) K/mm3 Seg Neutrophils % (40.0-70.0) % Seg Neutrophils # (1.8-7.7) K/mm3 Sodium (137-145) mmol/L Potassium (3.6-5.0) mmol/L Chloride (98-107) mmol/L Carbon Dioxide (22-30) mmol/L Anion Gap mmol/L BUN (7-17) mg/dL Creatinine (0.6-1.2) mg/dL Estimated GFR ml/min BUN/Creatinine Ratio % Glucose (65-100) mg/dL Calcium (8.4-10.2) mg/dL Magnesium 2.20 (1.7-2.3) mg/dL Total Bilirubin (0.1-1.2) mg/dL AST (5-40) units/L ALT (7-56) units/L Alkaline Phosphatase (35-129) units/L Troponin T (0.00-0.029) ng/mL Total Protein (6.3-8.2) g/dL Albumin (3.9-5) g/dL Albumin/Globulin Ratio % TSH (0.270-4.200) mlU/mL CBC 09/10/21 Range/Units 13:03 WBC 6.3 (4.5-11.0) K/mm3 RBC 4.76 (3.65-5.03) M/mm3 Hgb 14.5 H (10.1-14.3) gm/dl Hct 43.7 H (30.3-42.9) % Plt Count 239 (140-440) K/mm3 Lymph # (Auto) 2.1 (1.2-5.4) K/mm3 [place] # (Auto) 0.5 (0.0-0.8) K/mm3 Eos # (Auto) 0.3 (0.0-0.4) K/mm3 Baso # (Auto) 0.0 (0.0-0.1) K/mm3 Comprehensive Metabolic Panel 09/10/21 Range/Units 13:03 Sodium 143 (137-145) mmol/L Potassium 4.0 (3.6-5.0) mmol/L Chloride 107.1 H (98-107) mmol/L Carbon Dioxide 25 (22-30) mmol/L BUN 8 (7-17) mg/dL Creatinine 0.6 (0.6-1.2) mg/dL Glucose 102 H (65-100) mg/dL Calcium 8.8 (8.4-10.2) mg/dL AST 19 (5-40) units/L ALT 14 (7-56) units/L Alkaline Phosphatase 120 (35-129) units/L Total Protein 7.8 (6.3-8.2) g/dL Albumin 3.7 L (3.9-5) g/dL - Imaging and Cardiology Echo: report reviewed EKG: report reviewed EKG interpretations - Telemetry EKG Rhythm: Sinus Rhythm - EKG Sinus rhythms and dysrhythmias: sinus rhythm Assessment and Plan This patient is a 55-year-old female with a significant history of paroxysmal SVT, hypothyroidism, CYNTHIA, hypertension and hyperlipidemia who presents with a complaint of SVT this morning Plan: Echo 05/19/2021-EF 55 to 60%, left ventricular systolic function is normal, right ventricular systolic function is normal. Left and right atrium are normal in size. Lexiscan MPI stress test (05/20/2021): Is negative for reversible ischemia EKG from the ED showed sinus rhythm 83 no acute ischemic changes. Troponin negative x1 At time of assessment patient was symptom free and sinus rhythm 80 on the monitor Patient cardiac status is stable and is okay for discharge Patient has a follow-up with Dr. Sheikh, [facility] heart specialists, on 09/17/2021 at 9 AM in our [place] office. Phone [phone] Patient seen in conjunction with Dr. Mcfarlane who agrees with this plan of care. Will sign off - Patient Problems (1) Obesity Status: Acute (2) Hypothyroidism Status: Chronic (3) Paroxysmal SVT (supraventricular tachycardia) Status: Chronic
--- NOTE | 2021-09-14 18:38 | Electrocardiograph Report ---
[facility] Test Date: 2021-09-10 Test Time: 13:16:45 Pat Name: ALYX BOLAÑOS Department: Room: Gender: F Medical Data Entry Clerk: MIREYA : 1965 Requested By: LARRY PISANO Order Number: [id number] Reading MD: Laury Epstein Measurements Intervals Fine Rate: 83 P: 35 WA: 145 QRS: -36 QRSD: 105 T: -1 QT: 371 QTc: 436 Interpretive Statements Sinus rhythm Left axis deviation Consider anterior infarct Compared to ECG 05/19/2021 21:34:03 No significant change Electronically Signed On 09-14-2021 18:37:45 EDT by Laury Epstein
== END 2021-09-10 17:45 | disposition home or self-care (01) ==
LOC: ED 12:35
DX: I47.1 Supraventricular tachycardia (principal); R42 Dizziness and giddiness; R53.1 Weakness; E03.9 Hypothyroidism, unspecified; I10 Essential (primary) hypertension; E78.5 Hyperlipidemia, unspecified; M19.90 Unspecified osteoarthritis, unspecified site; F31.9 Bipolar disorder, unspecified; J44.9 Chronic obstructive pulmonary disease, unspecified; Z98.890 Other specified postprocedural states; Z88.5 Allergy status to narcotic agent
CPT/HCPCS: 36415; 71045; 80053; 83735; 84443; 84484; 85025; 93005; 99284

== ENCOUNTER 2022-02-21 10:36 | Outpatient (CLI) | payer MEDICAID ==
--- NOTE | 2022-02-21 11:58 | Fluoroscopy Report ---
BARIUM SWALLOW Indication: K30 FUNCTIONAL DYSPEPSIA. Technique: Single and double contrast barium technique utilized to evaluate the esophagus. FINDINGS: To begin the exam, swallowing was evaluated in the lateral position under direct fluorosco py. Swallowing was normal. No mucosal irregularity, mass, mass effect, or critical stenosis. Occasional tertiary contractions were witnessed in the distal esophagus with mild delayed emptying. No hiatal hernia or reflux was wit nessed during this exam. IMPRESSION: Mild esophageal dysmotility is suspected as described. Fluoroscopic time: 1.7 minutes Number of fluoroscopic images: 40 Signer Name: Irwin Mukherjee Jr, MD Signed: 02/21/2022 11:54 AM Workstation Name: [id number]
== END 2022-02-21 10:37 | disposition home or self-care (01) ==
LOC: FLUORO 10:36
PROVIDERS: ATTEND Surgery
DX: K30 Functional dyspepsia (principal)
CPT/HCPCS: 74220

== ENCOUNTER 2022-03-10 07:29 | Outpatient (CLI) | payer MEDICAID ==
--- NOTE | 2022-03-10 12:41 | Treadmill Report ---
[facility] Test Date: 2022-03-10 Test Time: 07:38:52 Pat Name: ALYX BOLAÑOS Department: Room: Gender: F Cable Reeler: Gala Lozano : 1965 Requested By: VIK MAY Order Number: [id number] Reading MD: Brendon Reeves Interpretive Statements Resting EKG showed S.R,incomplete RBBB,otherwise unremarkable. Exercised for 3'59",test was stopped due to SOB. No chest pain. Very mild upgoing ST depressions in inferolateral leads,< 1mm,improved immediately after stopping test. No arrhythmia noted. Appropriate B.P response noted. Maximal hR of 131 bpm noted.This is 80% of predicted maximal HR. IMP: Poor exercise tolerance. Negative for angina/ischemia at 80% of PMHR. Appropriate B.P response noted. No arrhythmia noted. Considering poor exercise tolerance,she is at moderate risk for future cardiovascular events. Electronically Signed On 03-10-2022 12:40:37 EDT by Brendon Reeves
== END 2022-03-10 07:30 | disposition home or self-care (01) ==
LOC: CARD 07:29
PROVIDERS: ATTEND Surgery
DX: K30 Functional dyspepsia (principal); E66.01 Morbid (severe) obesity due to excess calories
CPT/HCPCS: 93017

== ENCOUNTER 2022-03-14 11:00 | Outpatient (CLI) | payer MEDICAID | END 2022-03-14 11:01 | disposition home or self-care (01) | LOC: SLR 11:00 | PROVIDERS: ATTEND Surgery | DX: G47.33 Obstructive sleep apnea (adult) (pediatric) (principal) | CPT/HCPCS: 95811 ==